=== PATIENT | male | born 1930 | race Caucasian/White ===

== ENCOUNTER 2016-10-07 16:12 | Emergency (ER) | payer BC, OTHER ==
[2016-10-07 16:19] VITALS: BP 170/92; PULSE 83; TEMP 98; BMI 28.0
--- NOTE | 2016-10-07 19:05 | PDOC ---
History of Present Illness <Ted Birmingham - Last Filed: 10/07/16 19:50> - General History Source: Patient Exam Limitations: No Limitations - History of Present Illness Initial Comments: 10/07/16 20:15 The patient is a 86 year old male, with a significant past medical history of renal failure and hypertension, who presents to the emergency department complaining of shortness of breath for two days and intermittent palpitations. Patient is not presently experiencing any symptoms. Patient started experiencing shortness of breath and associated symptoms of nonproductive cough while at dialysis. Patient has a history of shortness of breath while walking for long periods and has to stop to catch his breath. Patient also admits to trouble sleeping and wakes up with shortness of breath. Patient is also experiencing swelling in lower extremities bilaterally. He denies any recent fevers, chills, headache or dizziness. He denies any recent nausea, vomit, diarrhea or constipation. He denies any recent chest pain. He denies any recent dysuria, frequency, urgency or hematuria. Past surgical history: Appendectomy Social History: Former smoker (quit over 45 years ago) Primary Care Physician: Kristopher Dunlap M.D. <Bibiana Guadalupe - Last Filed: 10/07/16 20:17> - General Chief Complaint: Respiratory Stated Complaint: CONGESTION Time Seen by Provider: 10/07/16 18:42 Past History - Past Medical History Anemia: No Asthma: No Cancer: Yes (LEFT FOOT) Cardiac Disorders: No CVA: No COPD: No CHF: No Dementia: No Diabetes: No Dialysis: Yes (-W-) GI Disorders: No Disorders: No HTN: Yes Hypercholesterolemia: Yes Liver Disease: No Suicide Attempt (Hx): No Seizures: No Thyroid Disease: No Other medical history: R SHOULDER BURSITIS - Surgical History Abdominal Surgery: No Appendectomy: Yes Cardiac Surgery: No Cholecystectomy: No Lung Surgery: No Neurologic Surgery: No Orthopedic Surgery: No - Psycho/Social/Smoking Cessation Hx Anxiety: No Suicidal Ideation: No Smoking History: Never smoked Have you smoked in the past 12 months: No If you are a former smoker, when did you quit?: 30 yrs ago Hx Alcohol Use: No Drug/Substance Use Hx: No Substance Use Type: None Hx Substance Use Treatment: No <Ted Birmingham - Last Filed: 10/07/16 19:50> <Bibiana Guadalupe - Last Filed: 10/07/16 20:17> - Past Medical History Allergies/Adverse Reactions: Allergies Allergy/AdvReac Type Severity Reaction Status Date / Time No Known Allergies Allergy Verified 10/07/16 16:19 Home Medications: Ambulatory Orders Aspirin Coated [Ecotrin -] 81 mg PO DAILY #0 02/14/14 Atorvastatin Ca [Lipitor] 20 mg PO HS #0 NS 02/14/14 Carvedilol 3.125 mg PO BID #0 02/14/14 Cholecalciferol (Vitamin D3) [Vitamin D3] 1,000 unit PO DAILY #0 02/14/14 Folic Acid/Vit Bcomp,C [Dialyvite 800 Tablet] 0.8 mg PO DAILY #0 02/14/14 [place]-3 Fatty Acids [Fish Oil] 1,000 mg PO TID #0 02/14/14 Sevelamer HCl [Renagel] 800 mg PO TID #0 02/14/14 Ubidecarenone [Co Q-10] 30 mg PO DAILY #0 02/14/14 Zolpidem Tartrate 10 mg PO DAILY #0 02/14/14 Review of Systems - Review of Systems Able to Perform ROS?: Yes Comments:: 10/07/16 20:01 CONSTITUTIONAL: No fever, no chills, no fatigue EYES: No visual changes ENT: No ear pain, no sore throat CARDIOVASCULAR: +palpitations,No chest pain, RESPIRATORY: +SOB, +cough. GI: No abdominal pain, no nausea, no vomiting, no constipation, no diarrhea GENITOURINARY: No dysuria, no frequency, no hematuria MUSCULOSKELETAL: No back pain, no joint pain, no myalgias SKIN: No rash NEURO: No headache <Bibiana Guadalupe - Last Filed: 10/07/16 20:17> *Physical Exam - Vital Signs Last Vital Signs Temp Pulse Resp BP Pulse Ox 98.0 F 83 20 170/92 99 10/07/16 16:14 10/07/16 16:14 10/07/16 16:14 10/07/16 16:14 10/07/16 16:14 <Ted Birmingham - Last Filed: 10/07/16 19:50> - Vital Signs Last Vital Signs Temp Pulse Resp BP Pulse Ox 98.0 F 83 20 170/92 99 08/30/17 16:14 10/07/16 16:14 10/07/16 16:14 10/07/16 16:14 10/07/16 16:14 - Physical Exam Comments: 10/07/16 20:01 CONSTITUTIONAL: Well-appearing; well-nourished; in no apparent distress HEAD: Normocephalic; atraumatic EYES: PERRL; EOM intact ENMT: External appears normal; normal oropharynx NECK: Supple; non-tender; no cervical lymphadenopathy CARD: Normal S1, S2; no murmurs, rubs, or gallops RESP: Normal chest excursion with respiration; breath sounds clear and equal bilaterally; no wheezes, rhonchi, or rales ABD: Soft, non-distended; non-tender; no palpable organomegaly, no palpable hernias EXT: AV fistula with a palpable thrill. +2 pitting edema of lower extremities bilaterally.Normal ROM in all four extremities; non-tender to palpation; distal pulses intact SKIN: Warm, dry, no rash NEURO: No focal neurological deficiencies. <Bibiana Guadalupe - Last Filed: 10/07/16 20:17> ED Treatment Course - RADIOLOGY Radiology Studies Ordered: Category Date Time Status CHEST PA & LAT [RAD] Stat Radiology 10/07/16 18:43 Ordered <Ted Birmingham - Last Filed: 10/07/16 19:50> Medical Decision Making - Medical Decision Making 10/07/16 19:51 patient is a well-appearing 86-y/omale with hx/o of ESRD on HD, HTN, hypercholesterolemia presents to the ED after several episodes of dry nonproductive cough while at HD. atient denies chest pain/nausea/vomiting/fever /chills. In the ER, patient is awake and alert well-appearing, asymptomatic, afebrile and mildly hypertensive. Oxygen saturation is noted to be 98% room air. Lungs are noted to be clear. Chest x-ray reveals minimal atelectasis the left lower lobe and borderline cardiomegaly. EKG reveals normal sinus at 76 with left axis deviation and right bundle branch block with LVH which appears unchanged from previous. I do not believe there are any acute issues are present at this time. Will discharge with PMD follow-up. <Ted Birmingham - Last Filed: 10/07/16 19:50> *DC/Admit/Observation/Transfer - Attestations Physician Attestion: 10/07/16 19:50 The documentation was prepared by the scribe under my direct supervision. I have reviewed the documentation which correctly represents the findings, medical decision-making and critical action taken by me. <Ted Birmingham - Last Filed: 10/07/16 19:50> - Attestations Scribe Attestion: 10/07/16 20:16 Documentation prepared by Bibiana Guadalupe, acting as medical instructor for Ted Birmingham MD. <Bibiana Guadalupe - Last Filed: 10/07/16 20:17> Diagnosis at time of Disposition: Shortness of breath, Cough - Discharge Dispostion Disposition: HOME Condition at time of disposition: Stable - Referrals Referrals: Kristopher Dunlap MD [Primary Care Provider] - - Patient Instructions Printed Discharge Instructions: DI for Cough -- Adult, DI for Shortness of Breath
--- NOTE | 2016-10-08 11:11 | EKG ---
Test Reason : Blood Pressure : / mmHG Vent. Rate : 076 BPM Atrial Rate : 076 BPM P-R Int : 138 ms QRS Dur : 136 ms QT Int : 424 ms P-R-T Axes : 061 -34 -08 degrees QTc Int : 477 ms SINUS RHYTHM WITH PREMATURE ATRIAL COMPLEXES WITH ABERRANT CONDUCTION LEFT AXIS DEVIATION RIGHT BUNDLE BRANCH BLOCK MINIMAL VOLTAGE CRITERIA FOR LVH, MAY BE NORMAL VARIANT ABNORMAL ECG WHEN COMPARED WITH ECG OF 21-FEB-2014 19:02, ABERRANT CONDUCTION IS NOW PRESENT Confirmed by SHEILA ESPARZA MD ([id number]) on 10/08/2016 11:10:56 AM Referred By: Confirmed By:SHEILA ESPARZA MD
== END 2016-10-07 20:01 | disposition home or self-care (01) ==
LOC: JER 16:12
DX: R05 Cough (principal); I12.0 Hypertensive chronic kidney disease with stage 5 chronic kidney disease or end stage renal disease; N18.6 End stage renal disease; N17.8 Other acute kidney failure; Z99.2 Dependence on renal dialysis; E78.00 Pure hypercholesterolemia, unspecified
CPT/HCPCS: 71020-TC; 93005; 93010; 99282-25

== ENCOUNTER 2016-11-26 11:54 | Inpatient (IN) | payer BC ==
--- NOTE | 2016-11-26 13:52 | PDOC ---
*Physical Exam - Vital Signs Last Vital Signs Temp Pulse Resp BP Pulse Ox 98.6 F 85 19 149/75 98 11/26/16 12:21 11/26/16 12:21 11/26/16 12:21 11/26/16 12:21 11/26/16 12:21 ED Treatment Course - LABORATORY CBC & Chemistry Diagram: 11/26/16 14:10 11/26/16 14:10 Medical Decision Making - Medical Decision Making 11/26/16 19:08 Agree with history physical assessment and plan *DC/Admit/Observation/Transfer Diagnosis at time of Disposition: Cellulitis, ESRD (end stage renal disease) on dialysis
[2016-11-26 14:29] LABS: BASOPHIL 0.4 % (0-2.0); EOSINOPHIL 0.6 % (0-4.5); MCH 33.3 pg (25.7-33.7); MCHC 32.8 g/dl (32.0-35.9); MEAN CELL VOLUME 101.5 fl (80-96); MEAN PLT VOLUME 7.7 fl (7.5-11.1); PLATELET COUNT 134 K/MM3 (134-434)
--- NOTE | 2016-11-26 14:32 | PDOC ---
History of Present Illness - General Chief Complaint: Altered Mental Status Stated Complaint: AMS/WOUND INFECTION Time Seen by Provider: 11/26/16 12:38 History Source: Patient, Family Exam Limitations: No Limitations - History of Present Illness Initial Comments: 11/26/16 13:33 86-year-old male brought in by family for complaints of feeling feverish along with generalized weakness and intermittent confusion since yesterday. As per and son patient had dialysis yesterday which went uneventful and after dialysis patient was found to have these symptoms which family thought after eating and resting through the night they were resolved but states symptoms continue and decided bring patient to the ER. Patient recent left foot infection treated with antibiotics 3 weeks which he just completed. Family denies drainage, redness or swelling on the site but states his left foot and left leg feel warm and appears swollen compared to the right. Patient is and urine and has no other complaints including headache, chest pain, shortness breath, cough, GI complaints, or change in appetite. Timing/Duration: 24 hours Severity: mild Associated Symptoms: reports: weakness, other (confusion) Past History - Travel Traveled outside of the country in the last 30 days: No Close contact w/someone who was outside of country & ill: No - Past Medical History Allergies/Adverse Reactions: Allergies Allergy/AdvReac Type Severity Reaction Status Date / Time No Known Allergies Allergy Verified 11/26/16 12:20 Home Medications: Ambulatory Orders Aspirin Coated [Ecotrin -] 81 mg PO DAILY #0 02/14/14 Atorvastatin Ca [Lipitor] 20 mg PO HS #0 NS 02/14/14 Carvedilol 3.125 mg PO BID #0 02/14/14 Cholecalciferol (Vitamin D3) [Vitamin D3] 1,000 unit PO DAILY #0 02/14/14 Folic Acid/Vit Bcomp,C [Dialyvite 800 Tablet] 0.8 mg PO DAILY #0 02/14/14 [place]-3 Fatty Acids [Fish Oil] 1,000 mg PO TID #0 02/14/14 Sevelamer HCl [Renagel] 800 mg PO TID #0 02/14/14 Ubidecarenone [Co Q-10] 30 mg PO DAILY #0 02/14/14 Zolpidem Tartrate 10 mg PO DAILY #0 02/14/14 Anemia: No Asthma: No Cancer: Yes (LEFT FOOT) Cardiac Disorders: No CVA: No COPD: No CHF: No Dementia: No Diabetes: No Dialysis: Yes (M-W-) GI Disorders: No Disorders: No HTN: Yes Hypercholesterolemia: Yes Liver Disease: No Seizures: No Thyroid Disease: No - Surgical History Abdominal Surgery: No Appendectomy: Yes Cardiac Surgery: No Cholecystectomy: No Lung Surgery: No Neurologic Surgery: No Orthopedic Surgery: No - Suicide/Smoking/Psychosocial Hx Smoking History: Former smoker Have you smoked in the past 12 months: No If you are a former smoker, when did you quit?: 30 yrs ago Information on smoking cessation initiated: No Hx Alcohol Use: No Drug/Substance Use Hx: No Substance Use Type: None Hx Substance Use Treatment: No Patient Lives Alone: No Lives with/in: spouse/SO Review of Systems - Review of Systems Able to Perform ROS?: No Is the patient limited Mohawk proficient: No Constitutional: Yes: Weakness HEENTM: No: Symptoms Reported Respiratory: No: Symptoms reported Cardiac (ROS): No: Symptoms Reported ABD/GI: No: Symptoms Reported : No: Symptoms Reported Integumentary: Yes: Other (wounds to left foot) Neurological: Yes: Weakness. No: Headache, Dizziness Hematologic/Lymphatic: No: Symptoms Reported *Physical Exam - Vital Signs Last Vital Signs Temp Pulse Resp BP Pulse Ox 98.6 F 85 19 149/75 98 11/26/16 12:21 11/26/16 12:21 11/26/16 12:21 11/26/16 12:21 11/26/16 12:21 - Physical Exam General Appearance: Yes: Nourished, Appropriately Dressed. No: Apparent Distress HEENT: negative: Pale Conjunctivae Neck: positive: Supple Respiratory/Chest: positive: Lungs Clear, Normal Breath Sounds. negative: Respiratory Distress, Accessory Muscle Use Cardiovascular: positive: Regular Rhythm, Regular Rate. negative: Murmur Gastrointestinal/Abdominal: positive: Soft. negative: Tenderness Musculoskeletal: negative: Normal Inspection Extremity: positive: Normal Capillary Refill. negative: Normal Inspection (1-2 + nonpitting edema to left foot and ankle. noted increased warmth when compared bilateral with mild erythema to anterior left distal tib/fib region) Integumentary: positive: Other (noted fissure / open callus to left heel measuring 2cm x 0.5 cm in depth. 1 cm x 0.25cm wound to the sole at the base of left 1st toe ) Neurologic: positive: Alert, Normal Mood/Affect, Motor Strength 5/5. negative: Fully Oriented (not to time) ED Treatment Course - LABORATORY CBC & Chemistry Diagram: 11/26/16 14:10 11/26/16 14:10 - RADIOLOGY Radiology Studies Ordered: Category Date Time Status CHEST X-RAY PORTABLE* [RAD] Stat Radiology 11/26/16 13:42 Ordered DUPLEX VASCUL US-1 LEG [US] Stat Ultrasound 11/26/16 13:41 Ordered Medical Decision Making - Medical Decision Making 11/26/16 14:02 Evaluation of possible infection of the left foot. Patient yesterday appeared weak ,mildly confused, and redness with swelling to the left lower leg to completing dialysis. Patient has no complaints except for mild weakness patient found to be alert place and person. Patient on exam also with clinical indication of early cellulitis. Patient ordered for septic workup including ultrasound of the left lower extremity and culture collected from both the heel and left sole wound 11/26/16 14:54 Laboratory Tests 11/26/16 14:10 WBC 4.0 D Hgb 11.2 L Hct 34.3 L Plt Count 134 D Monocytes % 14.8 H 11/26/16 14:59 Laboratory Tests 11/26/16 14:10 Sodium 136 Potassium 4.4 Chloride 100 Carbon Dioxide 30 Anion Gap 6 L BUN 48 H Creatinine 7.7 H* D Creat Clearance w eGFR 6.74 Random Glucose 90 D Calcium 8.6 Total Bilirubin 0.6 D AST 11 L ALT 14 D Alkaline Phosphatase 72 D Total Protein 7.0 Albumin 3.0 L 11/26/16 16:18 Laboratory Tests 11/26/16 11/26/16 11/26/16 14:00 14:10 14:10 WBC 4.0 D Hgb 11.2 L Hct 34.3 L MCV 101.5 H Neutrophils % 62.0 Monocytes % 14.8 H Sodium 136 Potassium 4.4 Chloride 100 Carbon Dioxide 30 Anion Gap 6 L BUN 48 H Creatinine 7.7 H* D Random Glucose 90 D Lactic Acid 0.8 AST 11 L ALT 14 D Alkaline Phosphatase 72 D Total Protein 7.0 Albumin 3.0 L 11/26/16 16:50 Since patient just recently completed antibiotics for a left foot wound patient will be admitted for failed outpatient antibiotic therapy. Patient to for hemodialysis tomorrow. Patient ordered for 1 g of vancomycin here in the ER. Case discussed with Dr. Muniz and states the place admission under Dr. Jara. As also placed with Dr. Merary Gallegos's patient's accounting manager controller to schedule him for dialysis tomorrow. Chest ray chest x-ray negative for acute findings . DVT study negative *DC/Admit/Observation/Transfer Diagnosis at time of Disposition: ESRD (end stage renal disease) on dialysis Cellulitis Qualifiers: Site of cellulitis: extremity Site of cellulitis of extremity: lower extremity Laterality: left Qualified Code(s): L03.116 - Cellulitis of left lower limb - Discharge Dispostion Admit: Yes
[2016-11-26] MEDS ORDERED: ACETAMINOPHEN 325 MG TABLET (FP) PO ONE (14:48)
[2016-11-26 14:50] LABS: ANION GAP 6 (8-16); BILIRUBIN,TOTAL 0.6 mg/dL (0.2-1.0); CALCIUM 8.6 mg/dL (8.5-10.1); CO2 30 mmol/L (21-32); GLUCOSE,RANDOM 90 mg/dL (74-106); SGOT/AST 11 U/L (15-37); SGPT/ALT 14 U/L (12-78)
--- NOTE | 2016-11-26 14:55 | EKG ---
Test Reason : Blood Pressure : / mmHG Vent. Rate : 078 BPM Atrial Rate : 078 BPM P-R Int : 152 ms QRS Dur : 130 ms QT Int : 410 ms P-R-T Axes : 055 -41 -17 degrees QTc Int : 467 ms NORMAL SINUS RHYTHM POSSIBLE LEFT ATRIAL ENLARGEMENT LEFT AXIS DEVIATION RIGHT BUNDLE BRANCH BLOCK LEFT VENTRICULAR HYPERTROPHY ABNORMAL ECG WHEN COMPARED WITH ECG OF 07-OCT-2016 19:26, ABERRANT CONDUCTION IS NO LONGER PRESENT Confirmed by SHEILA ESPARZA MD ([id number]) on 11/26/2016 2:55:02 PM Referred By: Confirmed By:SHEILA ESPARZA MD
[2016-11-26 14:56] LABS: ALK PHOS 72 U/L (45-117)
[2016-11-26 14:58] LABS: CREATININE 7.7 mg/dL (0.7-1.3)
[2016-11-26] MEDS ORDERED: ACETAMINOPHEN 325 MG TABLET (FP) ONE (15:15)
[2016-11-26] MEDS ORDERED: VANCOMYCIN 1,000 MG in DEXTROSE 5%-WATER - 250 ML IVPB ONE (16:43)
[2016-11-26] MEDS ORDERED: ACETAMINOPHEN 325 MG TABLET (FP) PO PRN (16:59)
[2016-11-26] MEDS: SEVELAMER CARBONATE 800 MG TAB (FP) PO SCH (18:05)
[2016-11-26] MEDS ORDERED: PIPERACILLIN/TAZOB 2.25 GM/50 ML PREMIX BAG IVPB SCH (22:00)
[2016-11-26] MEDS ORDERED: PIPERACILLIN/TAZOB 2.25 GM 50 ML IVPB ONE (22:00)
[2016-11-26] MEDS: ZOLPIDEM TARTRATE 5 MG TABLET PO SCH (22:11)
[2016-11-26] MEDS: HEPARIN NA (PORCINE) 5,000 UNITS/ML 1ML VIAL SQ SCH (22:11)
[2016-11-26] MEDS: CARVEDILOL 3.125 MG TABLET (FP) PO SCH (22:11)
[2016-11-26] MEDS: ATORVASTATIN CA 20 MG TABLET (FP) PO SCH (22:11)
[2016-11-27 02:29] VITALS: BMI 28.0
[2016-11-27 08:40] LABS: BASOPHIL 0.4 % (0-2.0); EOSINOPHIL 1.5 % (0-4.5); MCH 33.2 pg (25.7-33.7); MCHC 32.8 g/dl (32.0-35.9); MEAN CELL VOLUME 101.2 fl (80-96); MEAN PLT VOLUME 8.3 fl (7.5-11.1); NEUTROPHILS 62.4 % (42.8-82.8); PLATELET COUNT 139 K/MM3 (134-434); RDW 14.8 % (11.9-15.9)
[2016-11-27 08:51] LABS: ANION GAP 12 (8-16); BILIRUBIN,TOTAL 0.7 mg/dL (0.2-1.0); CALCIUM 8.4 mg/dL (8.5-10.1); CO2 25 mmol/L (21-32); GLUCOSE,RANDOM 81 mg/dL (74-106); SGOT/AST 15 U/L (15-37); SGPT/ALT 15 U/L (12-78); TOT PROT 7.1 g/dl (6.4-8.2)
[2016-11-27 08:57] LABS: ALK PHOS 71 U/L (45-117)
[2016-11-27] MEDS: SEVELAMER CARBONATE 800 MG TAB (FP) PO SCH ×3 (09:11→18:03)
[2016-11-27 09:26] LABS: CREATININE 8.9 mg/dL (0.7-1.3)
[2016-11-27] MEDS ORDERED: PT OWN MED DRAWER 7, Y5N ONE (10:02)
[2016-11-27] MEDS: CHOLECALCIFEROL (VITAMIN D3) 1,000 UNIT TABLET (FP) PO SCH (10:06)
[2016-11-27] MEDS: ASPIRIN COATED 81 MG TABLET.EC PO SCH (10:06)
[2016-11-27] MEDS: HEPARIN NA (PORCINE) 5,000 UNITS/ML 1ML VIAL SQ SCH ×2 (10:06→21:03)
[2016-11-27] MEDS: CARVEDILOL 3.125 MG TABLET (FP) PO SCH ×2 (10:06→21:03)
--- NOTE | 2016-11-27 10:09 | PN ---
Progress Note (short form) - Note Progress Note: ID consult dictated imp/reccd admitted with possible fever at home and confusion-cannot r/o occult bacteremia in a HD patient no fevers in hospital no cellulitis noted has several dry callouses on his feet appears volume overloaded- on HD L AVF no erythema foot ulcers are dry no erythema or drainage got vancomycin and zosyn in ed would continue vancomycin per level until blood cultures are back f/u cultures Problem List - Problems (1) Cellulitis Code(s): L03.90 - CELLULITIS, UNSPECIFIED Qualifiers: Site of cellulitis: extremity Site of cellulitis of extremity: lower extremity Laterality: left Qualified Code(s): L03.116 - Cellulitis of left lower limb; L03.116 - Cellulitis of left lower limb (2) ESRD (end stage renal disease) on dialysis Code(s): N18.6 - END STAGE RENAL DISEASE Z99.2 - DEPENDENCE ON RENAL DIALYSIS
--- NOTE | 2016-11-27 10:58 | HP ---
Admitting History and Physical - Primary Care Physician PCP: Kristopher Dunlap - Admission Chief Complaint: I'm dizzy History of Present Illness: Mr Moran is a very pleasant 86 year old male who comes in with difficulty walking and confusion. He is somewhat confused on exam so cannot give an accurate history but can give review of systems. Per his family he was doing well on Wednesday, and then Wednesday began to have difficulty walking. It was noted that he was complaining of more pain with walking. After HD on Wednesday he was very dizzy with walking,however this is not unusual. Yesterday he became very weak and also confused and was brought in for further evaluation. He says he is feeling fine today. He denies fevers, chills, lightheadedness today, chest pain , shortness of breath, nausea, vomiting, abdominal pain, diarrhea, difficulty or pain on urination. He endorses leg swelling and leg pain. History Source: Patient Limitations to Obtaining History: No Limitations - Past Medical History Cardiovascular: Yes: HTN, Hyperlipdemia Renal/: Yes: Renal Failure, BPH, Hemodialysis Heme/Onc: Yes: Anemia - Past Surgical History Past Surgical History: Yes: AV Fistula/Graft - Smoking History Smoking history: Former smoker Have you smoked in the past 12 months: No If you are a former smoker, when did you quit?: 30 yrs ago - Alcohol/Substance Use Hx Alcohol Use: No History of Substance Use: reports: None - Social History Usual Living Arrangement: Yes: With Spouse ADL: Independent History of Recent Travel: No Home Medications - Allergies Allergies/Adverse Reactions: Allergies Allergy/AdvReac Type Severity Reaction Status Date / Time No Known Allergies Allergy Verified 11/26/16 12:20 - Home Medications Home Medications: Ambulatory Orders Aspirin Coated [Ecotrin -] 81 mg PO DAILY #0 02/14/14 Atorvastatin Ca [Lipitor] 20 mg PO HS #0 NS 02/14/14 Carvedilol 3.125 mg PO BID #0 02/14/14 Cholecalciferol (Vitamin D3) [Vitamin D3] 1,000 unit PO DAILY #0 02/14/14 Folic Acid/Vit Bcomp,C [Dialyvite 800 Tablet] 0.8 mg PO DAILY #0 02/14/14 [place]-3 Fatty Acids [Fish Oil] 1,000 mg PO TID #0 02/14/14 Sevelamer HCl [Renagel] 800 mg PO TID #0 02/14/14 Ubidecarenone [Co Q-10] 30 mg PO DAILY #0 02/14/14 Zolpidem Tartrate 10 mg PO DAILY #0 02/14/14 Family Disease History - Family Disease History Family Disease History: Heart Disease: Brother, Sister Review of Systems Findings/Remarks: Full review of systems obtained, as per HPI and otherwise negative Physical Examination Vital Signs: Vital Signs Temperature 36.7 C 11/27/16 06:00 Pulse Rate 74 11/27/16 06:00 Respiratory Rate 20 11/27/16 06:00 Blood Pressure 160/84 11/27/16 06:00 O2 Sat by Pulse Oximetry (%) 95 11/26/16 21:40 Constitutional: Yes: Well Nourished, No Distress, Calm Eyes: Yes: Conjunctiva Clear, EOM Intact, PERRL HENT: Yes: Atraumatic, Normocephalic Cardiovascular: Yes: Regular Rate and Rhythm. No: Gallop, Murmur, Rub Respiratory: Yes: Regular, CTA Bilaterally. No: Rales, Rhonchi, Wheezes Gastrointestinal: Yes: Normal Bowel Sounds, Soft. No: Distention, Tenderness Extremities: Yes: WNL Edema: Yes Edema: LLE: 1+, RLE: 1+ Labs: CBC, BMP 11/27/16 06:00 11/27/16 06:00 Imaging - Results Chest X-ray: Report Reviewed, Image Reviewed Problem List - Problems (1) Cellulitis Assessment/Plan: -patient presents with cellulitis, failed outpatient therapy -with callous, concern for osteomyelitis -admit to hospital -ID following and placed on vancomycin -follow up cultures -follow up x-ray Code(s): L03.90 - CELLULITIS, UNSPECIFIED Qualifiers: Site of cellulitis: extremity Site of cellulitis of extremity: lower extremity Laterality: left Qualified Code(s): L03.116 - Cellulitis of left lower limb; L03.116 - Cellulitis of left lower limb (2) ESRD (end stage renal disease) on dialysis Assessment/Plan: -nephrology following -HD per nephrology Code(s): N18.6 - END STAGE RENAL DISEASE Z99.2 - DEPENDENCE ON RENAL DIALYSIS (3) BPH (benign prostatic hyperplasia) Assessment/Plan: -monitor Code(s): N40.0 - BENIGN PROSTATIC HYPERPLASIA WITHOUT LOWER URINRY TRACT SYMP (4) HLD (hyperlipidemia) Assessment/Plan: -continue lipitor Code(s): E78.5 - HYPERLIPIDEMIA, UNSPECIFIED (5) Hypertension Assessment/Plan: -continue coreg -may improve with HD Code(s): I10 - ESSENTIAL (PRIMARY) HYPERTENSION (6) Ulcer Assessment/Plan: -chronic heel ulcer -monitor Code(s): L98.499 - NON-PRESSURE CHRONIC ULCER OF SKIN OF SITES W UNSP SEVERITY
[2016-11-27] MEDS: VITAMIN B COMP W-C 1 EA TABLET PO SCH (11:58)
--- NOTE | 2016-11-27 12:10 | CONS ---
DATE OF CONSULTATION: 11/27/2016 REQUESTING PHYSICIAN: Sharad Muniz MD HISTORY OF PRESENT ILLNESS: This is an 86-year-old man, who has been on dialysis for at least the last 8 years via left AV fistula, whose family brought him to the ER yesterday with complaints of generalized weakness, feeling feverish, and some intermittent confusion. He had had dialysis yesterday, and after that, had these symptoms at home. They thought they would resolve, but they did not, they persisted, and they brought him to the emergency room. He has recently been on a 3-week course of an antibiotic, it is unclear what for, which he says he took twice a day for a cellulitis of his left foot. He otherwise feels well. He notes he has had chronic shortness of breath, which he states has been intermittent for the last several months. As well, he complains of sore throat which he has had for at least 8 months. The family noted in the emergency room that his left foot was warm and swollen compared to the right. He had a duplex done that was negative of his foot. There was no history of any trauma. He was afebrile in the emergency room. He had the duplex done. He was given vancomycin and Zosyn and admitted for further care. I was asked to see him for further antibiotic recommendations. He is currently awake and alert and reports feeling well other than this chronic sore throat and chronic shortness of breath. He has no dysuria. In fact, he reports he is anuric and does not urinate. ALLERGIES: He has no known drug allergies. MEDICATIONS: At home include Ecotrin, Lipitor, Coreg, vitamin D, fish oil, Renagel, coenzyme Q, Ambien, and Dialyvite. 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 He has been on dialysis. He is unclear why he is on dialysis. He has a history of hypertension. He denies diabetes. He has never had a heart attack. PAST SURGICAL HISTORY: Is notable for AV graft and appendectomy. SOCIAL HISTORY: He is . He lives with his . He is retired. He is a former smoker. He stopped smoking many years ago. REVIEW OF SYSTEMS: He denies headache. He has had a good appetite. He denies nausea, vomiting, diarrhea, or dysuria. PHYSICAL EXAMINATION General: He is awake and alert. Vital signs: Temperature is 98, pulse is 74, blood pressure 160/84, respiratory rate 20, weight is 190 pounds. HEENT: H is normocephalic. His eyes are anicteric. Neck: Supple. He has no thrush. He has no pharyngitis. He has no meningeal signs. Lungs: Have bibasilar crackles. He has scattered rhonchi throughout. Heart: Regular rate and rhythm. Abdomen: Soft, nontender. Extremities: Notable for 2+ dorsalis pedis pulses bilaterally. He has a dry plantar heel ulcer on the sole of his right heel. On his left foot, he has a small ulcer at the base of his left toe, which is dry. There is no associated cellulitis with either of these lesions. LABORATORIES: Notable for a white count of 4, hemoglobin 11.9, platelets are 139. INR is 1. BUN 59, creatinine 8.9. Cultures are pending. Chest x-ray was done and is consistent with congestion. Duplex studies were negative. SUMMARY: This is an 86-year-old man admitted with possible fever at home and confusion. This appears to be resolved. Cannot rule out occult bacteremia in a hemodialysis patient. I would suggest we continue the vancomycin based on levels until blood cultures are back. I would suggest we stop the Zosyn and that he be seen by Renal regarding his volume overload and need for further dialysis. Further recommendations to follow based on his clinical course. MCKAYLA PIERCE M.D. [id number]
--- NOTE | 2016-11-27 12:12 | CON.NEP ---
Consult Consult Specialty:: Nephrology Referred by:: Dr. 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 Pt completed dialysis on Wednesday but was very weak, refused to go to the ER at that time. At home he was confused at home and remained so the the next day. Denies any fever, chills , N/V/D. No chest pain, abd pian. No flank pain. Does not make urine. No Rash. Reports that his left leg was swollen and red on presentation. Has a chronic wound on his left foot for which he recieved a 3 week course of Abx. - History Source History Provided By: Patient, Family Member Limitations to Obtaining History: No Limitations - Past Medical History Cardio/Vascular: Yes: HTN, Hyperlipdemia Renal/: Yes: Renal Failure, BPH, Hemodialysis - Past Surgical History Past Surgical History: Yes: AV Fistula/Graft - Alcohol/Substance Use Hx Alcohol Use: No History of Substance Use: reports: None - Smoking History Smoking history: Former smoker Have you smoked in the past 12 months: No If you are a former smoker, when did you quit?: 30 yrs ago - Social History ADL: Independent History of Recent Travel: No Home Medications - Allergies Allergies/Adverse Reactions: Allergies Allergy/AdvReac Type Severity Reaction Status Date / Time No Known Allergies Allergy Verified 11/26/16 12:20 - Home Medications Home Medications: Ambulatory Orders Aspirin Coated [Ecotrin -] 81 mg PO DAILY #0 02/14/14 Atorvastatin Ca [Lipitor] 20 mg PO HS #0 NS 02/14/14 Carvedilol 3.125 mg PO BID #0 02/14/14 Cholecalciferol (Vitamin D3) [Vitamin D3] 1,000 unit PO DAILY #0 02/14/14 Folic Acid/Vit Bcomp,C [Dialyvite 800 Tablet] 0.8 mg PO DAILY #0 02/14/14 [place]-3 Fatty Acids [Fish Oil] 1,000 mg PO TID #0 02/14/14 Sevelamer HCl [Renagel] 800 mg PO TID #0 02/14/14 Ubidecarenone [Co Q-10] 30 mg PO DAILY #0 02/14/14 Zolpidem Tartrate 10 mg PO DAILY #0 02/14/14 Family Disease History - Family Disease History Family Disease History: Heart Disease: Brother, Sister Review of Systems - Review of Systems Constitutional: reports: No Symptoms Eyes: reports: No Symptoms HENT: reports: No Symptoms Neck: reports: No Symptoms Cardiovascular: reports: No Symptoms Respiratory: reports: No Symptoms Gastrointestinal: reports: No Symptoms Genitourinary: reports: No Symptoms Musculoskeletal: reports: No Symptoms Integumentary: reports: No Symptoms Neurological: reports: No Symptoms Endocrine: reports: No Symptoms Nephrology Consult - Height Height: 5 ft 9 in - Weight Weight: 190 lb - BMI Body Mass Index (BMI): 28.0 - Lab Results CBC,BMP: CBC, BMP 11/27/16 06:00 11/27/16 06:00 Anion Gap: Anion Gap Anion Gap 12 (8-16) 11/27/16 06:00 - Imaging Chest X-ray: Report Reviewed - Physical Examination Vital Signs: Vital Signs Temperature 98.0 F 11/27/16 06:00 Pulse Rate 74 11/27/16 06:00 Respiratory Rate 20 11/27/16 06:00 Blood Pressure 160/84 11/27/16 06:00 O2 Sat by Pulse Oximetry (%) 95 11/26/16 21:40 Constitutional: Yes: No Distress, Calm Eyes: Yes: Conjunctiva Clear HENT: Yes: Atraumatic, Normocephalic Neck: Yes: Supple Cardiovascular: Yes: Regular Rate and Rhythm Respiratory: Yes: Regular, Rales Gastrointestinal: Yes: Normal Bowel Sounds, Soft, Abdomen, Obese Renal/: No: Bladder Distention Edema: No Peripheral Pulses WNL: Yes Wound/Incision: Yes: Clean/Dry Neurological: Yes: Alert, Oriented Problem List - Problems (1) Cellulitis Code(s): L03.90 - CELLULITIS, UNSPECIFIED Qualifiers: Site of cellulitis: extremity Site of cellulitis of extremity: lower extremity Laterality: left Qualified Code(s): L03.116 - Cellulitis of left lower limb; L03.116 - Cellulitis of left lower limb (2) ESRD (end stage renal disease) on dialysis Code(s): N18.6 - END STAGE RENAL DISEASE Z99.2 - DEPENDENCE ON RENAL DIALYSIS (3) Altered mental status Code(s): R41.82 - ALTERED MENTAL STATUS, UNSPECIFIED Assessment/Plan 86 year old gentleman with PMHx of 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 #AMS in setting of LE Cellulitis/Chronic foot wound Mental status now improved to baseline as per family s/p IV Abx yesterday no CT head performed to continue Abx as per ID consider podiatry/vascular eval of chronic foot wound will check vanco level and redose vanco with HD today #ESRD on HD for dialysis today planed 3.5 hour treatment Renal diet, 1.2L fluid restriction Dose all meds for intermittent HD #CKD related Aemia Hgb is > 10 holding CLYDE at this time #Renal Osteodystrophy continue renvela TID with meals trend phos levels Thank you Will follow Sudheer Wade DO Current Medications Acetaminophen (Tylenol -) 650 mg PO Q4H PRN PRN Reason: FEVER OR PAIN Aspirin (Ecotrin -) 81 mg PO DAILY [facility] Last Admin: 11/27/16 10:06 Dose: 81 mg Atorvastatin Calcium (Lipitor -) 20 mg PO HS [facility] Last Admin: 11/26/16 22:11 Dose: 20 mg Carvedilol (Coreg -) 3.125 mg PO BID [facility] Last Admin: 11/27/16 10:06 Dose: 3.125 mg Cholecalciferol (Vitamin D3 -) 1,000 unit PO DAILY [facility] Last Admin: 11/27/16 10:06 Dose: 1,000 unit Heparin Sodium (Porcine) (Heparin -) 5,000 unit SQ BID [facility] Last Admin: 11/27/16 10:06 Dose: 5,000 unit Vancomycin HCl 1,000 mg/ (Dextrose) 250 mls @ 250 mls/hr IVPB ONCE ONE PRN Reason: Protocol Stop: 11/27/16 13:03 Multivit/Ca Carb/B Cmplx/FA/Prenat (Nephro-Geni -) 1 tablet PO DAILY [facility] Last Admin: 11/27/16 11:58 Dose: 1 tablet Non-Formulary Medication ([place]-3 Fatty Acids [Fish Oil]) 1,000 mg PO TID [facility] Non-Formulary Medication (Ubidecarenone [Co Q-10]) 30 mg PO DAILY [facility] Sevelamer Carbonate (Renvela -) 800 mg PO TIDCM [facility] Last Admin: 11/27/16 09:11 Dose: 800 mg Zolpidem Tartrate (Ambien -) 5 mg PO HS [facility] Last Admin: 11/26/16 22:11 Dose: 5 mg
[2016-11-27] MEDS ORDERED: HEPARIN NA (PORCINE) 5,000 UNITS/ML 1ML VIAL IVPUSH ONE (13:00)
[2016-11-27] MEDS ORDERED: VANCOMYCIN 1,000 MG in DEXTROSE 5%-WATER - 250 ML IVPB ONE (14:00)
[2016-11-27] MEDS: ATORVASTATIN CA 20 MG TABLET (FP) PO SCH (21:03)
[2016-11-27] MEDS: ZOLPIDEM TARTRATE 5 MG TABLET PO SCH (21:04)
--- NOTE | 2016-11-28 08:19 | PN ---
Progress Note, Physician History of Present Illness: ID Asymptomatic and afebrile throughout admission No localizing complaints - Current Medication List Current Medications: Active Medications Acetaminophen (Tylenol -) 650 mg PO Q4H PRN PRN Reason: FEVER OR PAIN Aspirin (Ecotrin -) 81 mg PO DAILY [facility] Last Admin: 11/27/16 10:06 Dose: 81 mg Atorvastatin Calcium (Lipitor -) 20 mg PO HS [facility] Last Admin: 11/27/16 21:03 Dose: 20 mg Carvedilol (Coreg -) 3.125 mg PO BID [facility] Last Admin: 11/27/16 21:03 Dose: 3.125 mg Cholecalciferol (Vitamin D3 -) 1,000 unit PO DAILY [facility] Last Admin: 11/27/16 10:06 Dose: 1,000 unit Heparin Sodium (Porcine) (Heparin -) 5,000 unit SQ BID [facility] Last Admin: 11/27/16 21:03 Dose: 5,000 unit Multivit/Ca Carb/B Cmplx/FA/Prenat (Nephro-Geni -) 1 tablet PO DAILY [facility] Last Admin: 11/27/16 11:58 Dose: 1 tablet Non-Formulary Medication ([place]-3 Fatty Acids [Fish Oil]) 1,000 mg PO TID [facility] Non-Formulary Medication (Ubidecarenone [Co Q-10]) 30 mg PO DAILY [facility] Sevelamer Carbonate (Renvela -) 800 mg PO TIDCM [facility] Last Admin: 11/27/16 18:03 Dose: 800 mg Zolpidem Tartrate (Ambien -) 5 mg PO HS [facility] Last Admin: 11/27/16 21:04 Dose: 5 mg - Objective Vital Signs: Vital Signs Temperature 97.9 F 11/28/16 06:00 Pulse Rate 76 11/28/16 06:00 Respiratory Rate 20 11/28/16 06:00 Blood Pressure 184/92 11/28/16 06:00 O2 Sat by Pulse Oximetry (%) 95 11/27/16 21:00 Constitutional: Yes: Well Nourished, No Distress Neck: Yes: WNL, Supple Cardiovascular: Yes: Regular Rate and Rhythm, S1, S2 Respiratory: Yes: WNL, Regular, CTA Bilaterally. No: Rales, Rhonchi Gastrointestinal: Yes: WNL, Normal Bowel Sounds, Soft. No: Tenderness, Tenderness, Rebound Extremities: Yes: Other (Dry ulcers foot no cellulitis) Edema: No Labs: CBC, BMP 11/27/16 06:00 11/27/16 06:00 Assessment/Plan Microbiology 11/26/16 13:50 Foot - Left Sole Gram Stain - Final 11/26/16 13:50 Foot - Left Heel Gram Stain - Final 11/26/16 14:10 Blood - Peripheral Venous Blood Culture - Preliminary NO GROWTH OBTAINED AFTER 24 HOURS, INCUBATION TO CONTINUE FOR 4 DAYS. 11/26/16 14:10 Blood - Peripheral Venous Blood Culture - Preliminary NO GROWTH OBTAINED AFTER 24 HOURS, INCUBATION TO CONTINUE FOR 4 DAYS. 11/26/16 13:50 Foot - Left Sole Wound Culture - Preliminary Staphylococcus Latex Coag Pos Diphtheroid/Corynebacterium Presumptive Ps Aeruginosa Non Lactose Fermenting Gnb Lactose Fermenting Neg Bacilli Group D Strep Or Entero Coccus 11/26/16 13:50 Foot - Left Heel Wound Culture - Preliminary Lactose Fermenting Neg Bacilli Staphylococcus Latex Coag Pos Group D Strep Or Entero Coccus Laboratory Tests 11/27/16 11/28/16 06:00 06:00 WBC 4.0 Hgb 11.9 Plt Count 139 Random Vancomycin Pending Assessment ESRD "fever" confusion NO fever here no confusion no bacteremia or cellulitis Plan Stop antibiotics completely Discharge planning Dominga SENIOR
[2016-11-28] MEDS: SEVELAMER CARBONATE 800 MG TAB (FP) PO SCH ×3 (08:53→17:26)
[2016-11-28] MEDS ORDERED: PT OWN MED DRAWER 7, Y5N ONE ×2 (10:37→12:34)
[2016-11-28] MEDS: HEPARIN NA (PORCINE) 5,000 UNITS/ML 1ML VIAL SQ SCH ×2 (10:42→22:16)
[2016-11-28] MEDS: ASPIRIN COATED 81 MG TABLET.EC PO SCH (10:42)
[2016-11-28] MEDS: CHOLECALCIFEROL (VITAMIN D3) 1,000 UNIT TABLET (FP) PO SCH (10:43)
[2016-11-28] MEDS: CARVEDILOL 3.125 MG TABLET (FP) PO SCH ×2 (10:44→22:16)
--- NOTE | 2016-11-28 12:43 | PN ---
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 present with Cellulites - Current Medication List Current Medications: Active Medications Acetaminophen (Tylenol -) 650 mg PO Q4H PRN PRN Reason: FEVER OR PAIN Aspirin (Ecotrin -) 81 mg PO DAILY [facility] Last Admin: 11/28/16 10:42 Dose: 81 mg Atorvastatin Calcium (Lipitor -) 20 mg PO HS [facility] Last Admin: 11/27/16 21:03 Dose: 20 mg Carvedilol (Coreg -) 3.125 mg PO BID [facility] Last Admin: 11/28/16 10:44 Dose: 3.125 mg Cholecalciferol (Vitamin D3 -) 1,000 unit PO DAILY [facility] Last Admin: 11/28/16 10:43 Dose: 1,000 unit Heparin Sodium (Porcine) (Heparin -) 5,000 unit SQ BID [facility] Last Admin: 11/28/16 10:42 Dose: 5,000 unit Multivit/Ca Carb/B Cmplx/FA/Prenat (Nephro-Geni -) 1 tablet PO DAILY [facility] Last Admin: 11/27/16 11:58 Dose: 1 tablet Non-Formulary Medication ([place]-3 Fatty Acids [Fish Oil]) 1,000 mg PO TID [facility] Non-Formulary Medication (Ubidecarenone [Co Q-10]) 30 mg PO DAILY [facility] Sevelamer Carbonate (Renvela -) 800 mg PO TIDCM [facility] Last Admin: 11/28/16 12:36 Dose: 800 mg Zolpidem Tartrate (Ambien -) 5 mg PO HS [facility] Last Admin: 11/27/16 21:04 Dose: 5 mg - Objective Vital Signs: Vital Signs Temperature 98.2 F 11/28/16 10:00 Pulse Rate 85 11/28/16 10:00 Respiratory Rate 20 11/28/16 10:00 Blood Pressure 188/96 11/28/16 10:00 O2 Sat by Pulse Oximetry (%) 95 11/27/16 21:00 Constitutional: Yes: Well Nourished HENT: Yes: WNL, Atraumatic, Normocephalic Neck: Yes: WNL, Supple, Trachea Midline Cardiovascular: Yes: WNL, Regular Rate and Rhythm, S1, S2. No: JVD, Murmur, Rub Respiratory: Yes: Regular, CTA Bilaterally Gastrointestinal: Yes: WNL, Normal Bowel Sounds, Soft Musculoskeletal: Yes: WNL. No: Back Pain, Joint Stiffness Extremities: Yes: Other (Left LE Cellulitis) Peripheral Pulses: Left Doralis Pedis: 1+, Right Dorsalis Pedis: 1+ Labs: CBC, BMP 11/27/16 06:00 11/27/16 06:00 Problem List - Problems (1) Cellulitis Assessment/Plan: Diffuse Cellulitis on Vancomycin redness and swelling regressing Code(s): L03.90 - CELLULITIS, UNSPECIFIED Qualifiers: Site of cellulitis: extremity Site of cellulitis of extremity: lower extremity Laterality: left Qualified Code(s): L03.116 - Cellulitis of left lower limb; L03.116 - Cellulitis of left lower limb (2) CKD (chronic kidney disease) stage 5, GFR less than 15 ml/min Assessment/Plan: on HD at present euvolumic Code(s): N18.5 - CHRONIC KIDNEY DISEASE, STAGE 5 (3) Hypertension Assessment/Plan: Well controlled cont all home meds Code(s): I10 - ESSENTIAL (PRIMARY) HYPERTENSION (4) BPH (benign prostatic hyperplasia) Assessment/Plan: cont home meds Code(s): N40.0 - BENIGN PROSTATIC HYPERPLASIA WITHOUT LOWER URINRY TRACT SYMP
[2016-11-28] MEDS: VITAMIN B COMP W-C 1 EA TABLET PO SCH (14:09)
--- NOTE | 2016-11-28 15:43 | PN ---
Progress Note, Physician Chief Complaint: The patient seen in his room. Family visiting. 86 y/o patient admitted with acute confusion and infected foot ulcers. The patient has ESRD, and is on HD MWF. 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 Pt completed dialysis on Wednesday but was very weak, refused to go to the ER at that time. At home he was confused and remained so the the next day. Denies any fever, chills, N/V/D. No chest pain, abd pian. No flank pain. Does not make urine. No Rash. Reports that his left leg was swollen and red on presentation. Has a chronic wound on his left foot - Current Medication List Current Medications: Active Medications Acetaminophen (Tylenol -) 650 mg PO Q4H PRN PRN Reason: FEVER OR PAIN Aspirin (Ecotrin -) 81 mg PO DAILY [facility] Last Admin: 11/28/16 10:42 Dose: 81 mg Atorvastatin Calcium (Lipitor -) 20 mg PO HS [facility] Last Admin: 11/27/16 21:03 Dose: 20 mg Bacitracin (Bacitracin -) 1 applic TP DAILY [facility] Carvedilol (Coreg -) 3.125 mg PO BID [facility] Last Admin: 11/28/16 10:44 Dose: 3.125 mg Cholecalciferol (Vitamin D3 -) 1,000 unit PO DAILY [facility] Last Admin: 11/28/16 10:43 Dose: 1,000 unit Heparin Sodium (Porcine) (Heparin -) 5,000 unit SQ BID [facility] Last Admin: 11/28/16 10:42 Dose: 5,000 unit Multivit/Ca Carb/B Cmplx/FA/Prenat (Nephro-Geni -) 1 tablet PO DAILY [facility] Last Admin: 11/28/16 14:09 Dose: 1 tablet Sevelamer Carbonate (Renvela -) 800 mg PO TIDCM [facility] Last Admin: 11/28/16 12:36 Dose: 800 mg Zolpidem Tartrate (Ambien -) 5 mg PO HS [facility] Last Admin: 11/27/16 21:04 Dose: 5 mg - Objective Vital Signs: Vital Signs Temperature 98.2 F 11/28/16 10:00 Pulse Rate 85 11/28/16 10:00 Respiratory Rate 20 11/28/16 10:00 Blood Pressure 188/96 11/28/16 10:00 O2 Sat by Pulse Oximetry (%) 93 L 11/28/16 09:00 Constitutional: Yes: Well Nourished, Calm HENT: Yes: Normocephalic Neck: Yes: Supple Cardiovascular: Yes: S1, S2 Respiratory: Yes: Regular, CTA Bilaterally Gastrointestinal: Yes: Normal Bowel Sounds, Soft Genitourinary: Yes: Anuria Musculoskeletal: Yes: Back Pain Extremities: Yes: Other (Foot ulcers (L), and ulcer on the right toe) Labs: CBC, BMP 11/27/16 06:00 11/27/16 06:00 Problem List - Problems (1) Cellulitis Code(s): L03.90 - CELLULITIS, UNSPECIFIED Qualifiers: Site of cellulitis: extremity Site of cellulitis of extremity: lower extremity Laterality: left Qualified Code(s): L03.116 - Cellulitis of left lower limb; L03.116 - Cellulitis of left lower limb (2) ESRD (end stage renal disease) on dialysis Code(s): N18.6 - END STAGE RENAL DISEASE Z99.2 - DEPENDENCE ON RENAL DIALYSIS (3) Altered mental status Code(s): R41.82 - ALTERED MENTAL STATUS, UNSPECIFIED (4) HLD (hyperlipidemia) Code(s): E78.5 - HYPERLIPIDEMIA, UNSPECIFIED (5) Hypertension Code(s): I10 - ESSENTIAL (PRIMARY) HYPERTENSION (6) Shortness of breath Code(s): R06.02 - SHORTNESS OF BREATH (7) Ulcer Code(s): L98.499 - NON-PRESSURE CHRONIC ULCER OF SKIN OF SITES W UNSP SEVERITY Assessment/Plan This is a 86 year old gentleman with PMHx of 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 IV antibiotics as ordered. The confusion is remarkably better. There is an area of Pregangrenous changes of the right second tow. Will ask Dr. Hurley to evaluate any Vascular compromise. Next HD on Wednesday. Thank you. Merary Gallegos MD
[2016-11-28] MEDS: OMEGA PO SCH ×2 (16:07→17:23)
[2016-11-28] MEDS: UBIDECARENONE 30 MG PO SCH (16:07)
[2016-11-28] MEDS: FATTY ACIDS PO SCH ×2 (16:07→17:23)
[2016-11-28] MEDS: BACITRACIN 15 GM TUBE TOPICAL OINTMENT TP SCH (17:26)
[2016-11-28] MEDS: ATORVASTATIN CA 20 MG TABLET (FP) PO SCH (22:16)
[2016-11-28] MEDS: ZOLPIDEM TARTRATE 5 MG TABLET PO SCH (22:17)
[2016-11-29 08:24] LABS: ANION GAP 11 (8-16); CALCIUM 8.1 mg/dL (8.5-10.1); CO2 29 mmol/L (21-32); GLUCOSE,RANDOM 89 mg/dL (74-106)
[2016-11-29 08:33] LABS: BASOPHIL 0.6 % (0-2.0); EOSINOPHIL 1.9 % (0-4.5); MCH 33.2 pg (25.7-33.7); MCHC 32.8 g/dl (32.0-35.9); MEAN CELL VOLUME 101.4 fl (80-96); MEAN PLT VOLUME 7.9 fl (7.5-11.1); NEUTROPHILS 63.6 % (42.8-82.8); PLATELET COUNT 140 K/MM3 (134-434); RDW 15.2 % (11.9-15.9); WHITE BLOOD COUNT 4.2 K/mm3 (4.0-10.0)
[2016-11-29] MEDS: SEVELAMER CARBONATE 800 MG TAB (FP) PO SCH ×3 (08:35→17:33)
[2016-11-29 08:50] LABS: CREATININE 8.2 mg/dL (0.7-1.3)
[2016-11-29] MEDS ORDERED: PT OWN MED DRAWER 7, Y5N ONE (09:46)
[2016-11-29] MEDS: BACITRACIN 15 GM TUBE TOPICAL OINTMENT TP SCH (09:47)
[2016-11-29] MEDS: CHOLECALCIFEROL (VITAMIN D3) 1,000 UNIT TABLET (FP) PO SCH (09:48)
[2016-11-29] MEDS: CARVEDILOL 3.125 MG TABLET (FP) PO SCH ×2 (09:48→22:21)
[2016-11-29] MEDS: VITAMIN B COMP W-C 1 EA TABLET PO SCH (09:48)
[2016-11-29] MEDS: ASPIRIN COATED 81 MG TABLET.EC PO SCH (09:48)
[2016-11-29] MEDS: HEPARIN NA (PORCINE) 5,000 UNITS/ML 1ML VIAL SQ SCH ×2 (09:48→22:22)
--- NOTE | 2016-11-29 10:58 | CONSULT ---
Consult - History of Present Illness History of Present Illness: 86 yo man with ESRD on HD admitted with diagnosis of cellulitis of the left leg. He had swelling and a small wound on the left plantar foot. No fever or chills. - Past Medical History Cardio/Vascular: Yes: HTN, Hyperlipdemia Renal/: Yes: Renal Failure, BPH, Hemodialysis - Past Surgical History Past Surgical History: Yes: AV Fistula/Graft - Alcohol/Substance Use Hx Alcohol Use: No History of Substance Use: reports: None - Smoking History Smoking history: Former smoker Have you smoked in the past 12 months: No If you are a former smoker, when did you quit?: 30 yrs ago - Social History ADL: Independent History of Recent Travel: No Home Medications - Allergies Allergies/Adverse Reactions: Allergies Allergy/AdvReac Type Severity Reaction Status Date / Time No Known Allergies Allergy Verified 11/26/16 12:20 - Home Medications Home Medications: Ambulatory Orders Aspirin Coated [Ecotrin -] 81 mg PO DAILY #0 02/14/14 Atorvastatin Ca [Lipitor] 20 mg PO HS #0 NS 02/14/14 Carvedilol 3.125 mg PO BID #0 02/14/14 Cholecalciferol (Vitamin D3) [Vitamin D3] 1,000 unit PO DAILY #0 02/14/14 Folic Acid/Vit Bcomp,C [Dialyvite 800 Tablet] 0.8 mg PO DAILY #0 02/14/14 [place]-3 Fatty Acids [Fish Oil] 1,000 mg PO TID #0 02/14/14 Sevelamer HCl [Renagel] 800 mg PO TID #0 02/14/14 Ubidecarenone [Co Q-10] 30 mg PO DAILY #0 02/14/14 Zolpidem Tartrate 10 mg PO DAILY #0 02/14/14 Family Disease History - Family Disease History Family Disease History: Heart Disease: Brother, Sister Physical Exam Vital Signs: Vital Signs Temperature 98.0 F 11/29/16 08:56 Pulse Rate 72 11/29/16 08:56 Respiratory Rate 20 11/29/16 08:56 Blood Pressure 172/82 11/29/16 08:56 O2 Sat by Pulse Oximetry (%) 93 L 11/28/16 21:00 Constitutional: Yes: No Distress Eyes: Yes: EOM Intact Cardiovascular: Yes: Regular Rate and Rhythm Edema: No Integumentary: Yes: Other (Small plantar ulcer 1st met head wiith callused edges. No erythema.) Labs: CBC, BMP 11/29/16 06:00 11/29/16 06:00 Imaging - Results Ultrasound: Report Reviewed (Patent arterial flow in left leg to [employer].) Problem List - Problems (1) Ulcer Assessment/Plan: Small ulcer left foot, no evidence for deep infection. X-ray does not show osteomyelitis. WBC is normal. Rec: Bactroban to wound. Code(s): L98.499 - NON-PRESSURE CHRONIC ULCER OF SKIN OF SITES W UNSP SEVERITY
--- NOTE | 2016-11-29 13:12 | PN ---
Progress Note, Physician Chief Complaint: The patient seen in his room. with him. 86 y/o patient admitted with acute confusion and infected foot ulcers. The patient has ESRD, and is on HD MWF. Seen by Dr. Hurley. Comments noted. ? Right toe ulcer - Current Medication List Current Medications: Active Medications Acetaminophen (Tylenol -) 650 mg PO Q4H PRN PRN Reason: FEVER OR PAIN Aspirin (Ecotrin -) 81 mg PO DAILY [facility] Last Admin: 11/29/16 09:48 Dose: 81 mg Atorvastatin Calcium (Lipitor -) 20 mg PO HS [facility] Last Admin: 11/28/16 22:16 Dose: 20 mg Bacitracin (Bacitracin -) 1 applic TP DAILY [facility] Last Admin: 11/29/16 09:47 Dose: 1 appful Carvedilol (Coreg -) 3.125 mg PO BID [facility] Last Admin: 11/29/16 09:48 Dose: 3.125 mg Cholecalciferol (Vitamin D3 -) 1,000 unit PO DAILY [facility] Last Admin: 11/29/16 09:48 Dose: 1,000 unit Heparin Sodium (Porcine) (Heparin -) 5,000 unit SQ BID [facility] Last Admin: 11/29/16 09:48 Dose: 5,000 unit Multivit/Ca Carb/B Cmplx/FA/Prenat (Nephro-Geni -) 1 tablet PO DAILY [facility] Last Admin: 11/29/16 09:48 Dose: 1 tablet Sevelamer Carbonate (Renvela -) 800 mg PO TIDCM [facility] Last Admin: 11/29/16 12:16 Dose: 800 mg Zolpidem Tartrate (Ambien -) 5 mg PO HS [facility] Last Admin: 11/28/16 22:17 Dose: Not Given - Objective Vital Signs: Vital Signs Temperature 98.0 F 11/29/16 08:56 Pulse Rate 72 11/29/16 08:56 Respiratory Rate 20 11/29/16 08:56 Blood Pressure 172/82 11/29/16 08:56 O2 Sat by Pulse Oximetry (%) 93 L 11/28/16 21:00 Constitutional: Yes: Well Nourished, No Distress, Calm Eyes: Yes: Conjunctiva Clear HENT: Yes: Atraumatic Neck: Yes: Supple Cardiovascular: Yes: S1, S2 Respiratory: Yes: Regular, Diminished Gastrointestinal: Yes: Normal Bowel Sounds, Soft Extremities: Yes: Delayed Capillary Refill, Erythema Edema: LLE: Trace, RLE: Trace Neurological: Yes: Alert, Oriented Labs: CBC, BMP 11/29/16 06:00 11/29/16 06:00 Problem List - Problems (1) Cellulitis Code(s): L03.90 - CELLULITIS, UNSPECIFIED Qualifiers: Site of cellulitis: extremity Site of cellulitis of extremity: lower extremity Laterality: left Qualified Code(s): L03.116 - Cellulitis of left lower limb; L03.116 - Cellulitis of left lower limb (2) ESRD (end stage renal disease) on dialysis Code(s): N18.6 - END STAGE RENAL DISEASE Z99.2 - DEPENDENCE ON RENAL DIALYSIS (3) Altered mental status Code(s): R41.82 - ALTERED MENTAL STATUS, UNSPECIFIED (4) HLD (hyperlipidemia) Code(s): E78.5 - HYPERLIPIDEMIA, UNSPECIFIED (5) Hypertension Code(s): I10 - ESSENTIAL (PRIMARY) HYPERTENSION (6) Shortness of breath Code(s): R06.02 - SHORTNESS OF BREATH (7) Ulcer Code(s): L98.499 - NON-PRESSURE CHRONIC ULCER OF SKIN OF SITES W UNSP SEVERITY Assessment/Plan This is a 86 year old gentleman with PMHx of 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 IV antibiotics as ordered. The confusion is remarkably better. The patient to receive next dialysis tomorrow. Thank you. Merary Gallegos MD
[2016-11-29] MEDS: ZOLPIDEM TARTRATE 5 MG TABLET PO SCH (22:20)
[2016-11-29] MEDS: ATORVASTATIN CA 20 MG TABLET (FP) PO SCH (22:21)
--- NOTE | 2016-11-30 00:24 | PN ---
Progress Note, Physician Chief Complaint: No new complaints, left foot pain improving, no fever History of Present Illness: 86 yrs old M with H/O HTN, CKD stage 5 on HD present with Cellulites - Current Medication List Current Medications: Active Medications Acetaminophen (Tylenol -) 650 mg PO Q4H PRN PRN Reason: FEVER OR PAIN Aspirin (Ecotrin -) 81 mg PO DAILY [facility] Last Admin: 11/29/16 09:48 Dose: 81 mg Atorvastatin Calcium (Lipitor -) 20 mg PO HS [facility] Last Admin: 11/29/16 22:21 Dose: 20 mg Bacitracin (Bacitracin -) 1 applic TP DAILY [facility] Last Admin: 11/29/16 09:47 Dose: 1 appful Carvedilol (Coreg -) 3.125 mg PO BID [facility] Last Admin: 11/29/16 22:21 Dose: 3.125 mg Cholecalciferol (Vitamin D3 -) 1,000 unit PO DAILY [facility] Last Admin: 11/29/16 09:48 Dose: 1,000 unit Heparin Sodium (Porcine) (Heparin -) 5,000 unit SQ BID [facility] Last Admin: 11/29/16 22:22 Dose: 5,000 unit Multivit/Ca Carb/B Cmplx/FA/Prenat (Nephro-Geni -) 1 tablet PO DAILY [facility] Last Admin: 11/29/16 09:48 Dose: 1 tablet Sevelamer Carbonate (Renvela -) 800 mg PO TIDCM [facility] Last Admin: 11/29/16 17:33 Dose: 800 mg Zolpidem Tartrate (Ambien -) 5 mg PO HS [facility] Last Admin: 11/29/16 22:20 Dose: Not Given - Objective Vital Signs: Vital Signs Temperature 97.9 F 11/29/16 16:30 Pulse Rate 80 11/29/16 16:30 Respiratory Rate 18 11/29/16 16:30 Blood Pressure 155/81 11/29/16 16:30 O2 Sat by Pulse Oximetry (%) 93 L 11/29/16 09:00 Constitutional: Yes: Well Nourished HENT: Yes: WNL, Atraumatic, Normocephalic Neck: Yes: WNL, Supple, Trachea Midline Cardiovascular: Yes: WNL, Regular Rate and Rhythm, S1, S2. No: JVD, Murmur, Rub Respiratory: Yes: Regular, CTA Bilaterally Gastrointestinal: Yes: WNL, Normal Bowel Sounds, Soft Musculoskeletal: Yes: WNL. No: Back Pain, Joint Stiffness Extremities: Yes: Other (Left LE Cellulitis) Peripheral Pulses: Left Doralis Pedis: 1+, Right Dorsalis Pedis: 1+ Labs: CBC, BMP 11/29/16 06:00 11/29/16 06:00 Problem List - Problems (1) Cellulitis Assessment/Plan: Diffuse Cellulitis on Vancomycin redness and swelling regressing, grew polymicrobial most likely skin caroline. Code(s): L03.90 - CELLULITIS, UNSPECIFIED Qualifiers: Site of cellulitis: extremity Site of cellulitis of extremity: lower extremity Laterality: left Qualified Code(s): L03.116 - Cellulitis of left lower limb; L03.116 - Cellulitis of left lower limb (2) CKD (chronic kidney disease) stage 5, GFR less than 15 ml/min Assessment/Plan: on HD at present euvolumic Code(s): N18.5 - CHRONIC KIDNEY DISEASE, STAGE 5 (3) Hypertension Assessment/Plan: Well controlled cont all home meds Code(s): I10 - ESSENTIAL (PRIMARY) HYPERTENSION (4) BPH (benign prostatic hyperplasia) Assessment/Plan: cont home meds Code(s): N40.0 - BENIGN PROSTATIC HYPERPLASIA WITHOUT LOWER URINRY TRACT SYMP
--- NOTE | 2016-11-30 00:27 | PN ---
Progress Note, Physician Chief Complaint: No new complaints, left foot pain improving, no fever History of Present Illness: 86 yrs old M with H/O HTN, CKD stage 5 on HD present with Cellulites - Current Medication List Current Medications: Active Medications Acetaminophen (Tylenol -) 650 mg PO Q4H PRN PRN Reason: FEVER OR PAIN Aspirin (Ecotrin -) 81 mg PO DAILY [facility] Last Admin: 11/29/16 09:48 Dose: 81 mg Atorvastatin Calcium (Lipitor -) 20 mg PO HS [facility] Last Admin: 11/29/16 22:21 Dose: 20 mg Bacitracin (Bacitracin -) 1 applic TP DAILY [facility] Last Admin: 11/29/16 09:47 Dose: 1 appful Carvedilol (Coreg -) 3.125 mg PO BID [facility] Last Admin: 11/29/16 22:21 Dose: 3.125 mg Cholecalciferol (Vitamin D3 -) 1,000 unit PO DAILY [facility] Last Admin: 11/29/16 09:48 Dose: 1,000 unit Heparin Sodium (Porcine) (Heparin -) 5,000 unit SQ BID [facility] Last Admin: 11/29/16 22:22 Dose: 5,000 unit Multivit/Ca Carb/B Cmplx/FA/Prenat (Nephro-Geni -) 1 tablet PO DAILY [facility] Last Admin: 11/29/16 09:48 Dose: 1 tablet Sevelamer Carbonate (Renvela -) 800 mg PO TIDCM [facility] Last Admin: 11/29/16 17:33 Dose: 800 mg Zolpidem Tartrate (Ambien -) 5 mg PO HS [facility] Last Admin: 11/29/16 22:20 Dose: Not Given - Objective Vital Signs: Vital Signs Temperature 97.9 F 11/29/16 16:30 Pulse Rate 80 11/29/16 16:30 Respiratory Rate 18 11/29/16 16:30 Blood Pressure 155/81 11/29/16 16:30 O2 Sat by Pulse Oximetry (%) 93 L 11/29/16 09:00 Constitutional: Yes: Well Nourished HENT: Yes: WNL, Atraumatic, Normocephalic Neck: Yes: WNL, Supple, Trachea Midline Cardiovascular: Yes: WNL, Regular Rate and Rhythm, S1, S2. No: JVD, Murmur, Rub Respiratory: Yes: Regular, CTA Bilaterally Gastrointestinal: Yes: WNL, Normal Bowel Sounds, Soft Musculoskeletal: Yes: WNL. No: Back Pain, Joint Stiffness Extremities: Yes: Other (Left LE Cellulitis) Peripheral Pulses: Left Doralis Pedis: 1+, Right Dorsalis Pedis: 1+ Labs: CBC, BMP 11/29/16 06:00 11/29/16 06:00 Problem List - Problems (1) Cellulitis Assessment/Plan: Diffuse Cellulitis on Vancomycin redness and swelling regressing, grew polymicrobial most likely skin caroline. Code(s): L03.90 - CELLULITIS, UNSPECIFIED Qualifiers: Site of cellulitis: extremity Site of cellulitis of extremity: lower extremity Laterality: left Qualified Code(s): L03.116 - Cellulitis of left lower limb; L03.116 - Cellulitis of left lower limb (2) CKD (chronic kidney disease) stage 5, GFR less than 15 ml/min Assessment/Plan: on HD at present euvolumic Code(s): N18.5 - CHRONIC KIDNEY DISEASE, STAGE 5 (3) Hypertension Assessment/Plan: Well controlled cont all home meds Code(s): I10 - ESSENTIAL (PRIMARY) HYPERTENSION (4) BPH (benign prostatic hyperplasia) Assessment/Plan: cont home meds Code(s): N40.0 - BENIGN PROSTATIC HYPERPLASIA WITHOUT LOWER URINRY TRACT SYMP
[2016-11-30 09:06] LABS: BASOPHIL 1.1 % (0-2.0); MCH 33.1 pg (25.7-33.7); MEAN CELL VOLUME 100.2 fl (80-96); MEAN PLT VOLUME 7.8 fl (7.5-11.1); NEUTROPHILS 65.4 % (42.8-82.8); PLATELET COUNT 142 K/MM3 (134-434); WHITE BLOOD COUNT 4.8 K/mm3 (4.0-10.0)
[2016-11-30 09:29] LABS: ALBUMIN 3.1 g/dl (3.4-5.0); ANION GAP 13 (8-16); CALCIUM 7.8 mg/dL (8.5-10.1); CO2 24 mmol/L (21-32); GLUCOSE,RANDOM 101 mg/dL (74-106); SGOT/AST 14 U/L (15-37); SGPT/ALT 17 U/L (12-78)
[2016-11-30] MEDS: SEVELAMER CARBONATE 800 MG TAB (FP) PO SCH ×3 (09:36→18:09)
[2016-11-30 09:37] LABS: ALK PHOS 74 U/L (45-117); BILIRUBIN,TOTAL 0.5 mg/dL (0.2-1.0); TOT PROT 7.2 g/dl (6.4-8.2)
[2016-11-30 09:45] LABS: CREATININE 9.9 mg/dL (0.7-1.3)
[2016-11-30] MEDS ORDERED: PT OWN MED DRAWER 7, Y5N ONE (12:40)
--- NOTE | 2016-11-30 12:46 | PN ---
Progress Note, Physician Chief Complaint: The patient seen in his room. with him. 86 y/o patient admitted with acute confusion and infected foot ulcers. The patient has ESRD, and is on HD MWF. Seen by Dr. Hurley. Comments noted. ? Right toe ulcer History of Present Illness: This is a 86 year old gentleman with PMHx of 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 Denies any fever, chills, N/V/D. No chest pain, abd pian. No flank pain. Does not make urine. No Rash. Reports that his left leg was swollen and red on presentation. Has a chronic wound on his left foot. Very unsteady on feel. Now has pain in the right shoulder. Had Hemodialysis earlier. Tolerated well. The foot ulcers are still unhealed. The patient and requesting a Podiatry evaluation other than by Dr. Parker. - Current Medication List Current Medications: Active Medications Acetaminophen (Tylenol -) 650 mg PO Q4H PRN PRN Reason: FEVER OR PAIN Aspirin (Ecotrin -) 81 mg PO DAILY [facility] Last Admin: 11/29/16 09:48 Dose: 81 mg Atorvastatin Calcium (Lipitor -) 20 mg PO HS [facility] Last Admin: 11/29/16 22:21 Dose: 20 mg Bacitracin (Bacitracin -) 1 applic TP DAILY [facility] Last Admin: 11/29/16 09:47 Dose: 1 appful Carvedilol (Coreg -) 3.125 mg PO BID [facility] Last Admin: 11/29/16 22:21 Dose: 3.125 mg Cholecalciferol (Vitamin D3 -) 1,000 unit PO DAILY [facility] Last Admin: 11/29/16 09:48 Dose: 1,000 unit Heparin Sodium (Porcine) (Heparin -) 5,000 unit SQ BID [facility] Last Admin: 11/29/16 22:22 Dose: 5,000 unit Multivit/Ca Carb/B Cmplx/FA/Prenat (Nephro-Geni -) 1 tablet PO DAILY [facility] Last Admin: 11/29/16 09:48 Dose: 1 tablet Sevelamer Carbonate (Renvela -) 800 mg PO TIDCM [facility] Last Admin: 11/30/16 09:36 Dose: Not Given Zolpidem Tartrate (Ambien -) 5 mg PO HS [facility] Last Admin: 11/29/16 22:20 Dose: Not Given - Objective Vital Signs: Vital Signs Temperature 98.4 F 11/30/16 08:30 Pulse Rate 34 L 11/30/16 11:00 Respiratory Rate 18 11/30/16 11:00 Blood Pressure 149/70 11/30/16 11:00 O2 Sat by Pulse Oximetry (%) 93 L 11/29/16 21:00 Constitutional: Yes: Calm, Anxious Eyes: Yes: Conjunctiva Clear HENT: Yes: Normocephalic Cardiovascular: Yes: Regular Rate and Rhythm, S1, S2 Respiratory: Yes: CTA Bilaterally, Diminished Gastrointestinal: Yes: Normal Bowel Sounds, Soft Labs: CBC, BMP 11/30/16 08:30 11/30/16 08:30 Problem List - Problems (1) Cellulitis Code(s): L03.90 - CELLULITIS, UNSPECIFIED Qualifiers: Site of cellulitis: extremity Site of cellulitis of extremity: lower extremity Laterality: left Qualified Code(s): L03.116 - Cellulitis of left lower limb; L03.116 - Cellulitis of left lower limb (2) ESRD (end stage renal disease) on dialysis Code(s): N18.6 - END STAGE RENAL DISEASE Z99.2 - DEPENDENCE ON RENAL DIALYSIS (3) Altered mental status Code(s): R41.82 - ALTERED MENTAL STATUS, UNSPECIFIED (4) HLD (hyperlipidemia) Code(s): E78.5 - HYPERLIPIDEMIA, UNSPECIFIED (5) Hypertension Code(s): I10 - ESSENTIAL (PRIMARY) HYPERTENSION (6) Shortness of breath Code(s): R06.02 - SHORTNESS OF BREATH (7) Ulcer Code(s): L98.499 - NON-PRESSURE CHRONIC ULCER OF SKIN OF SITES W UNSP SEVERITY Assessment/Plan This is a 86 year old gentleman with PMHx of 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 IV antibiotics as ordered. The confusion is remarkably better. Very unsteady on feet. Also has right shoulder pain. Will get PT. Will get podiatry consult by Dr. Bunch. Thank you. Merary Gallegos MD
[2016-11-30] MEDS: CHOLECALCIFEROL (VITAMIN D3) 1,000 UNIT TABLET (FP) PO SCH (12:56)
[2016-11-30] MEDS: CARVEDILOL 3.125 MG TABLET (FP) PO SCH ×2 (12:56→21:17)
[2016-11-30] MEDS: ASPIRIN COATED 81 MG TABLET.EC PO SCH (12:56)
[2016-11-30] MEDS: VITAMIN B COMP W-C 1 EA TABLET PO SCH (12:57)
[2016-11-30] MEDS: HEPARIN NA (PORCINE) 5,000 UNITS/ML 1ML VIAL SQ SCH ×2 (12:57→21:17)
[2016-11-30] MEDS: BACITRACIN 15 GM TUBE TOPICAL OINTMENT TP SCH (14:00)
--- NOTE | 2016-11-30 16:50 | PN ---
Progress Note, Physician Chief Complaint: Patient complains of shoulder pain, per this is chronic and unchanged. No cp, sob, n/v. says mental status is at baseline - Current Medication List Current Medications: Active Medications Acetaminophen (Tylenol -) 650 mg PO Q4H PRN PRN Reason: FEVER OR PAIN Aspirin (Ecotrin -) 81 mg PO DAILY [facility] Last Admin: 11/30/16 12:56 Dose: 81 mg Atorvastatin Calcium (Lipitor -) 20 mg PO HS [facility] Last Admin: 11/29/16 22:21 Dose: 20 mg Bacitracin (Bacitracin -) 1 applic TP DAILY [facility] Last Admin: 11/29/16 09:47 Dose: 1 appful Carvedilol (Coreg -) 3.125 mg PO BID [facility] Last Admin: 11/30/16 12:56 Dose: 3.125 mg Cholecalciferol (Vitamin D3 -) 1,000 unit PO DAILY [facility] Last Admin: 11/30/16 12:56 Dose: 1,000 unit Heparin Sodium (Porcine) (Heparin -) 5,000 unit SQ BID [facility] Last Admin: 11/30/16 12:57 Dose: 5,000 unit Multivit/Ca Carb/B Cmplx/FA/Prenat (Nephro-Geni -) 1 tablet PO DAILY [facility] Last Admin: 11/30/16 12:57 Dose: 1 tablet Sevelamer Carbonate (Renvela -) 800 mg PO TIDCM [facility] Last Admin: 11/30/16 12:56 Dose: 800 mg Zolpidem Tartrate (Ambien -) 5 mg PO HS [facility] Last Admin: 11/29/16 22:20 Dose: Not Given - Objective Vital Signs: Vital Signs Temperature 37.0 C 11/30/16 15:09 Pulse Rate 98 H 11/30/16 15:09 Respiratory Rate 18 11/30/16 15:09 Blood Pressure 152/84 11/30/16 15:09 O2 Sat by Pulse Oximetry (%) 93 L 11/29/16 21:00 Constitutional: Yes: Well Nourished, No Distress, Calm Cardiovascular: Yes: Regular Rate and Rhythm. No: Gallop, Murmur, Rub Respiratory: Yes: Regular, CTA Bilaterally. No: Rales, Rhonchi, Wheezes Gastrointestinal: Yes: Normal Bowel Sounds, Soft. No: Distention, Tenderness Extremities: Yes: WNL Edema: No Labs: CBC, BMP 11/30/16 08:30 11/30/16 08:30 Problem List - Problems (1) Cellulitis Code(s): L03.90 - CELLULITIS, UNSPECIFIED Qualifiers: Site of cellulitis: extremity Site of cellulitis of extremity: lower extremity Laterality: left Qualified Code(s): L03.116 - Cellulitis of left lower limb; L03.116 - Cellulitis of left lower limb (2) ESRD (end stage renal disease) on dialysis Code(s): N18.6 - END STAGE RENAL DISEASE Z99.2 - DEPENDENCE ON RENAL DIALYSIS (3) BPH (benign prostatic hyperplasia) Code(s): N40.0 - BENIGN PROSTATIC HYPERPLASIA WITHOUT LOWER URINRY TRACT SYMP (4) HLD (hyperlipidemia) Code(s): E78.5 - HYPERLIPIDEMIA, UNSPECIFIED (5) Hypertension Code(s): I10 - ESSENTIAL (PRIMARY) HYPERTENSION (6) Ulcer Code(s): L98.499 - NON-PRESSURE CHRONIC ULCER OF SKIN OF SITES W UNSP SEVERITY Assessment/Plan (1) Cellulitis Assessment/Plan: -x-ray negative for osteomyelitis -ID following, stopped antibiotics -doing well off antibiotics -d/c planning Code(s): L03.90 - CELLULITIS, UNSPECIFIED Qualifiers: Site of cellulitis: extremity Site of cellulitis of extremity: lower extremity Laterality: left Qualified Code(s): L03.116 - Cellulitis of left lower limb; L03.116 - Cellulitis of left lower limb (2) ESRD (end stage renal disease) on dialysis Assessment/Plan: -nephrology following -HD today Code(s): N18.6 - END STAGE RENAL DISEASE Z99.2 - DEPENDENCE ON RENAL DIALYSIS (3) BPH (benign prostatic hyperplasia) Assessment/Plan: -monitor Code(s): N40.0 - BENIGN PROSTATIC HYPERPLASIA WITHOUT LOWER URINRY TRACT SYMP (4) HLD (hyperlipidemia) Assessment/Plan: -continue lipitor Code(s): E78.5 - HYPERLIPIDEMIA, UNSPECIFIED (5) Hypertension Assessment/Plan: -continue coreg -may improve with HD Code(s): I10 - ESSENTIAL (PRIMARY) HYPERTENSION (6) Ulcer Assessment/Plan: -chronic heel ulcer -monitor -outpatient follow up Code(s): L98.499 - NON-PRESSURE CHRONIC ULCER OF SKIN OF SITES W UNSP SEVERITY Dispo -d/c tomorrow with [facility]
[2016-11-30] MEDS: ATORVASTATIN CA 20 MG TABLET (FP) PO SCH (21:17)
[2016-11-30] MEDS: ZOLPIDEM TARTRATE 5 MG TABLET PO SCH (21:17)
[2016-12-01 07:45] LABS: BASOPHIL 0.4 % (0-2.0); MCH 33.4 pg (25.7-33.7); MCHC 33.1 g/dl (32.0-35.9); MEAN PLT VOLUME 8.1 fl (7.5-11.1); NEUTROPHILS 60.5 % (42.8-82.8); PLATELET COUNT 139 K/MM3 (134-434); RDW 14.7 % (11.9-15.9); WHITE BLOOD COUNT 3.8 K/mm3 (4.0-10.0)
[2016-12-01 08:21] LABS: ANION GAP 14 (8-16); CO2 29 mmol/L (21-32); CREATININE 6.6 mg/dL (0.7-1.3); GLUCOSE,RANDOM 74 mg/dL (74-106); MAGNESIUM 2.2 mg/dL (1.8-2.4)
[2016-12-01] MEDS ORDERED: PT OWN MED DRAWER 7, Y5N ONE (08:37)
[2016-12-01] MEDS: CHOLECALCIFEROL (VITAMIN D3) 1,000 UNIT TABLET (FP) PO SCH ×2 (08:42→10:55)
[2016-12-01] MEDS: HEPARIN NA (PORCINE) 5,000 UNITS/ML 1ML VIAL SQ SCH ×2 (08:42→10:55)
[2016-12-01] MEDS: SEVELAMER CARBONATE 800 MG TAB (FP) PO SCH ×2 (08:42→13:54)
[2016-12-01] MEDS: ASPIRIN COATED 81 MG TABLET.EC PO SCH ×2 (08:42→10:55)
[2016-12-01] MEDS: CARVEDILOL 3.125 MG TABLET (FP) PO SCH ×2 (08:42→10:55)
[2016-12-01] MEDS: VITAMIN B COMP W-C 1 EA TABLET PO SCH ×2 (08:43→10:55)
--- NOTE | 2016-12-01 11:55 | PN ---
Progress Note, Physician Chief Complaint: The patient seen in his room. Seems slightly confused. with him. The foot ulcer is open, but no drainage. Awaiting Podiatry eval. 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 Denies any fever, chills, N/V/D. No chest pain, abd pian. No flank pain. Does not make urine. No Rash. Reports that his left leg was swollen and red on presentation. Has a chronic wound on his left foot. Very unsteady on feel. Now has pain in the right shoulder. Had Hemodialysis earlier. Tolerated well. The foot ulcers are still unhealed. The patient and requesting a Podiatry evaluation other than by Dr. Parker. - Current Medication List Current Medications: Active Medications Acetaminophen (Tylenol -) 650 mg PO Q4H PRN PRN Reason: FEVER OR PAIN Aspirin (Ecotrin -) 81 mg PO DAILY [facility] Last Admin: 12/01/16 10:55 Dose: Not Given Atorvastatin Calcium (Lipitor -) 20 mg PO HS [facility] Last Admin: 11/30/16 21:17 Dose: 20 mg Bacitracin (Bacitracin -) 1 applic TP DAILY [facility] Last Admin: 11/30/16 14:00 Dose: 1 applic Carvedilol (Coreg -) 3.125 mg PO BID [facility] Last Admin: 12/01/16 10:55 Dose: Not Given Cholecalciferol (Vitamin D3 -) 1,000 unit PO DAILY [facility] Last Admin: 12/01/16 10:55 Dose: Not Given Heparin Sodium (Porcine) (Heparin -) 5,000 unit SQ BID [facility] Last Admin: 12/01/16 10:55 Dose: Not Given Multivit/Ca Carb/B Cmplx/FA/Prenat (Nephro-Geni -) 1 tablet PO DAILY [facility] Last Admin: 12/01/16 10:55 Dose: Not Given Sevelamer Carbonate (Renvela -) 800 mg PO TIDCM [facility] Last Admin: 12/01/16 08:42 Dose: 800 mg Zolpidem Tartrate (Ambien -) 5 mg PO HS [facility] Last Admin: 11/30/16 21:17 Dose: 5 mg - Objective Vital Signs: Vital Signs Temperature 98.1 F 12/01/16 11:15 Pulse Rate 77 12/01/16 11:15 Respiratory Rate 20 12/01/16 11:15 Blood Pressure 152/75 12/01/16 11:15 O2 Sat by Pulse Oximetry (%) 95 11/30/16 21:00 Constitutional: Yes: No Distress, Anxious Eyes: Yes: Conjunctiva Clear HENT: Yes: Normocephalic Neck: Yes: Trachea Midline Cardiovascular: Yes: S1, S2 Respiratory: Yes: CTA Bilaterally Gastrointestinal: Yes: Normal Bowel Sounds, Soft Edema: LLE: Trace (Same side as the foot ulcers) Neurological: Yes: Alert, Confusion Labs: CBC, BMP 12/01/16 07:25 12/01/16 07:25 Problem List - Problems (1) Cellulitis Code(s): L03.90 - CELLULITIS, UNSPECIFIED Qualifiers: Site of cellulitis: extremity Site of cellulitis of extremity: lower extremity Laterality: left Qualified Code(s): L03.116 - Cellulitis of left lower limb; L03.116 - Cellulitis of left lower limb (2) ESRD (end stage renal disease) on dialysis Code(s): N18.6 - END STAGE RENAL DISEASE Z99.2 - DEPENDENCE ON RENAL DIALYSIS (3) Altered mental status Code(s): R41.82 - ALTERED MENTAL STATUS, UNSPECIFIED (4) HLD (hyperlipidemia) Code(s): E78.5 - HYPERLIPIDEMIA, UNSPECIFIED (5) Hypertension Code(s): I10 - ESSENTIAL (PRIMARY) HYPERTENSION (6) Shortness of breath Code(s): R06.02 - SHORTNESS OF BREATH (7) Ulcer Code(s): L98.499 - NON-PRESSURE CHRONIC ULCER OF SKIN OF SITES W UNSP SEVERITY Assessment/Plan This is a 86 year old gentleman with PMHx of 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 The ulcer on the sole of the foot is dry , but very foul smelling. Very unsteady on feet. Also has right shoulder pain. PT as ordered. Awaiting Podiatry eval. Thank you. Merary Gallegos MD
[2016-12-01] MEDS: BACITRACIN 15 GM TUBE TOPICAL OINTMENT TP SCH (13:54)
[2016-12-01 14:52] VITALS: BP 118/70; PULSE 89; TEMP 97.9
--- NOTE | 2016-12-01 15:04 | DS ---
Physical Examination Vital Signs: Vital Signs Temperature 36.6 C 12/01/16 14:51 Pulse Rate 89 12/01/16 14:51 Respiratory Rate 20 12/01/16 14:51 Blood Pressure 118/70 12/01/16 14:51 O2 Sat by Pulse Oximetry (%) 95 11/30/16 21:00 Labs: CBC, BMP 12/01/16 07:25 12/01/16 07:25 Discharge Summary Reason For Visit: CELLULITIS Current Active Problems CKD (chronic kidney disease) stage 5, GFR less than 15 ml/min (Acute) Cellulitis (Acute) ESRD (end stage renal disease) on dialysis (Acute) Condition: Good - Instructions Diet, Activity, Other Instructions: resume previous diet and activity Referrals: Kristopher Dunlap MD [Staff Physician] - Merary Gallegos MD [Staff Physician] - Ankita Case MD [Staff Physician] - Main Hernandez MD [Staff Physician] - Disposition: [facility]/HOME HEALTH CARE - Home Medications Comprehensive Discharge Medication List: Ambulatory Orders Aspirin Coated [Ecotrin -] 81 mg PO DAILY #0 02/14/14 Atorvastatin Ca [Lipitor] 20 mg PO HS #0 NS 02/14/14 Carvedilol 3.125 mg PO BID #0 02/14/14 Cholecalciferol (Vitamin D3) [Vitamin D3] 1,000 unit PO DAILY #0 02/14/14 Folic Acid/Vit Bcomp,C [Dialyvite 800 Tablet] 0.8 mg PO DAILY #0 02/14/14 [place]-3 Fatty Acids [Fish Oil] 1,000 mg PO TID #0 02/14/14 Sevelamer HCl [Renagel] 800 mg PO TID #0 02/14/14 Ubidecarenone [Co Q-10] 30 mg PO DAILY #0 02/14/14 Zolpidem Tartrate 10 mg PO DAILY #0 02/14/14 Bacitracin - [Bacitracin Topical Ointment -] 1 applic TP DAILY #1 tube 12/01/16
--- NOTE | 2016-12-01 15:42 | CONSULT ---
Consult - text type - Consultation Consultation Note: Podiatry Consultation: 86 year old M presents for admission with confusion, difficulty walking. Patient states that he has left foot ulcers for many months, currently being treated by his outside executive coach. He has been using silvadene on the wounds for local wound care. Does have history of recurrent cellulitis on the leg. 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 He denies F/V/N/C/SOB/CP. He is afebrile, VSS. PMHx: HTN, HLP, ESRD on HD, BPH Meds: noted in chart ALL: NKMA SOLO: L foot: pedal pulses palpable, TG wnl, CFT brisk to all toes. There is a sub- 1st metatarsal pressure ulcer with granular base, hyperkeratotic borders, no probing to bone, no purulence, no fluctuance, no periwound erythema, no ascending cellulitis, no signs of active infection. There is a sub-5th metatarsa pressure ulcer with granular base, hyperkeratotic borders, no probing to bone, no purulence, no fluctuance, no ascending cellulitis, no signs of active infection. There is a plantar heel pressure ulcer with granular base, hyperkeratotic borders, no probing to bone, no purulence, no fluctuance, no ascending cellulitis, no signs of active infection. WBC: 3.8 Wound Cx: mixed species Blood Cx: no growth x 5 days L foot XR: no radiographic evidence of osteomyelitis Imp: 86 year old M with L foot pressure ulcers, grade 3 1. Excisional debridement L foot pressure ulcers to subcutaneous tissue using # 15 blade scalpel. Patient tolerated the procedure well without complications. 2. Recommend bactroban ointment daily to L foot ulcers. Patient and his explained wound care instructions. 3. Offloading measures discussed with patient. 4. Upon discharge should f/u with me in wound healing center [phone]. If symptoms worsen can investigate further with bone scan or MRI. Thank you for the courtesy of this consultation. Valentine Hernandez DPM
== END 2016-12-01 17:30 | disposition home health service (06) | DRG 570 ==
LOC: JER 11:54 → JERBED 16:53 → J8W 21:54
PROVIDERS: ADMIT Specialist; ATTEND Specialist
PROC: 5A1D70Z Performance of Urinary Filtration, Intermittent, Less than 6 Hours Per Day (ICD-10-PCS; 2016-11-27)
PROC: 0JBR0ZZ Excision of Left Foot Subcutaneous Tissue and Fascia, Open Approach (ICD-10-PCS; principal; 2016-12-01)
DX: L03.116 Cellulitis of left lower limb (principal); N18.6 End stage renal disease; I12.0 Hypertensive chronic kidney disease with stage 5 chronic kidney disease or end stage renal disease; L97.408 Non-pressure chronic ulcer of unspecified heel and midfoot with other specified severity; L97.528 Non-pressure chronic ulcer of other part of left foot with other specified severity; R50.9 Fever, unspecified; E78.5 Hyperlipidemia, unspecified; R26.81 Unsteadiness on feet; N40.0 Benign prostatic hyperplasia without lower urinary tract symptoms; R41.82 Altered mental status, unspecified; D63.1 Anemia in chronic kidney disease; Z87.891 Personal history of nicotine dependence; Z99.2 Dependence on renal dialysis
CPT/HCPCS: 36415; 71010-TC; 73630-TC-LT; 80048; 80053; 83605; 83735; 84100; 85025; 86704; 86706; 86708; 86803; 87040; 87070; 87186; 87205; 87340; 93005; 93010; 93926-TC; 93971-TC; 97116-GP; 97161-GP; 99285-25; G0480; J1644

== ENCOUNTER 2017-03-12 14:43 | Observation (INO) | payer BC, OTHER ==
--- NOTE | 2017-03-12 14:55 | PDOC ---
Rapid Medical Evaluation Time Seen by Provider: 03/12/17 14:49 Medical Evaluation: Allergies Allergy/AdvReac Type Severity Reaction Status Date / Time No Known Allergies Allergy Verified 11/26/16 12:20 I have performed a brief in-person evaluation of this patient. The patient presents with a chief complaint of: from dialysis today with weakness; can't stand Pertinent physical exam findings: none I have ordered the following: EKG, labs The patient will proceed to the ED for further evaluation. Discharge Disposition - Referrals Referrals: Kristopher Dunlap MD [Primary Care Provider] - - Patient Instructions - Post Discharge Activity
[2017-03-12 15:24] LABS: BASO % 0.5 % (0-2.0); EOS % 0.4 % (0-4.5); HEMOGLOBIN 14.4 GM/dL (11.7-16.9); MCH 34.1 pg (25.7-33.7); MCHC 33.6 g/dl (32.0-35.9); MEAN CELL VOLUME 101.7 fl (80-96); MEAN PLT VOLUME 8.1 fl (7.5-11.1); MONO % 11.4 % (3.8-10.2); NEUT % 68.7 % (42.8-82.8); PLATELET COUNT 148 K/MM3 (134-434); RBC 4.22 M/mm3 (4.00-5.60); RDW 14.2 % (11.9-15.9)
[2017-03-12 15:55] LABS: ALBUMIN 3.7 g/dl (3.4-5.0); ANION GAP 9 (8-16); BILIRUBIN,TOTAL 0.5 mg/dL (0.2-1.0); BLOOD UREA NITROGEN 24 mg/dL (7-18); CALCIUM 8.8 mg/dL (8.5-10.1); CHLORIDE 99 mmol/L (98-107); CO2 27 mmol/L (21-32); CREATININE 6.1 mg/dL (0.7-1.3); GLUCOSE,RANDOM 98 mg/dL (74-106); INR 1.02 (0.82-1.09); POTASSIUM 4.2 mmol/L (3.5-5.1); PROTHROMBIN TIME (PATIENT) 11.5 SEC (9.98-11.88); SGOT/AST 13 U/L (15-37); SGPT/ALT 18 U/L (12-78); SODIUM 135 mmol/L (136-145); TOT PROT 8.5 g/dl (6.4-8.2)
[2017-03-12 16:09] LABS: ALK PHOS 86 U/L (45-117)
--- NOTE | 2017-03-12 16:58 | PDOC ---
History of Present Illness - General History Source: Patient Exam Limitations: No Limitations <Emre Ambrocio - Last Filed: 03/12/17 20:27> - General History Source: Patient Exam Limitations: No Limitations - History of Present Illness Initial Comments: 03/13/17 00:40 Patient is an 87 year old male with a significant past medical history of HTN, Hyperlipidemia, Renal Failure, BPH, Hemodialysis, and Anemia, who presents to the ED with complaints of bilateral lower extremity weakness that began this afternoon. Patient reports receiving his Dialysis this afternoon when he was suddenly experienced bilateral leg weakness when he attempted to stand. He reports not being able to walk after receiving his dialysis but denies falling or hitting his head. Patient reports experiencing dizziness secondary to bilateral leg weakness. Patient reports experiencing left shoulder pain, and is unsure how long it has been present. Denies pain, trauma to affected area. Denies chest pain, Sob. Denies nausea, vomiting. Denies diarrhea, constipation, dysuria, hematuria. Denies any other symptoms. No back apin, numbness/tingling. Denies any vision changes. Allergies: None Social history: Former smoker (Last 30 years). No alcohol. No illicit drugs. Surgical history: AV Fistula/Graft PMD: Dr. Dunlap Business Intelligence Analyst: Dr. Grace. Vascular Surgeon: Dr. Hurley <Kee Burns - Last Filed: 03/13/17 00:41> - General Chief Complaint: Weakness Stated Complaint: WEAKNESS Time Seen by Provider: 03/12/17 14:49 Past History - Past Medical History Anemia: No Asthma: No Cancer: Yes (LEFT FOOT) Cardiac Disorders: No CVA: No COPD: No CHF: No Dementia: No Diabetes: No Dialysis: Yes GI Disorders: No Disorders: No HTN: Yes Hypercholesterolemia: Yes Liver Disease: No Seizures: No Thyroid Disease: No - Surgical History Abdominal Surgery: No Appendectomy: Yes Cardiac Surgery: No Cholecystectomy: No Lung Surgery: No Neurologic Surgery: No Orthopedic Surgery: No - Suicide/Smoking/Psychosocial Hx Smoking History: Former smoker Have you smoked in the past 12 months: No If you are a former smoker, when did you quit?: 30 yrs ago Information on smoking cessation initiated: No Hx Alcohol Use: No Drug/Substance Use Hx: No Substance Use Type: None Hx Substance Use Treatment: No <Emre Ambrocio - Last Filed: 03/12/17 20:27> <Kee Burns - Last Filed: 03/13/17 00:41> - Past Medical History Allergies/Adverse Reactions: Allergies Allergy/AdvReac Type Severity Reaction Status Date / Time No Known Allergies Allergy Verified 03/12/17 14:54 Home Medications: Ambulatory Orders Aspirin Coated [Ecotrin -] 81 mg PO DAILY #0 02/14/14 Atorvastatin Ca [Lipitor] 20 mg PO HS #0 NS 02/14/14 Carvedilol 3.125 mg PO BID #0 02/14/14 Cholecalciferol (Vitamin D3) [Vitamin D3] 1,000 unit PO DAILY #0 02/14/14 Folic Acid/Vit B Complex and C [Dialyvite 800 Tablet] 0.8 mg PO DAILY #0 [place]-3 Fatty Acids [Fish Oil] 1,000 mg PO TID #0 02/14/14 Sevelamer HCl [Renagel] 800 mg PO TID #0 02/14/14 Ubidecarenone [Co Q-10] 30 mg PO DAILY #0 02/14/14 Bacitracin - [Bacitracin Topical Ointment -] 1 applic TP DAILY #1 tube 12/01/16 Gentamicin 0.1% Ointment [Garamycin 0.1% Ointment -] 1 applic TP BID #1 tube Gentamicin 0.1% Ointment [Garamycin 0.1% Ointment -] 1 applic TP DAILY #1 tube 01/26/17 Review of Systems - Review of Systems Able to Perform ROS?: Yes Comments:: 03/13/17 00:41 CONSTITUTIONAL: No reported: Fever, Chills, Diaphoresis, Generalized Weakness, Malaise, Loss of Appetite HEENT: No reported: Rhinorrhea, Nasal Congestion, Throat Pain, Throat Swelling, Difficulty Swallowing, Mouth Swelling, Ear Pain, Eye Pain, Visual Changes CARDIOVASCULAR: No reported: Chest Pain, Syncope, Palpitations, Irregular Heart Rate, Lightheadedness, Peripheral Edema RESPIRATORY: No reported: Cough, Shortness of Breath, SOB with Exertion, Orthopnea, Wheezing , Stridor, Hemoptysis GASTROINTESTINAL: No reported: Abdominal pain, Abdominal Distension, Nausea, Vomiting, Diarrhea, Constipation, Melena, Hematochezia GENITOURINARY: No reported: Dysuria, Frequency, Urgency, Hesitancy, Flank Pain, Genital Pain MUSCULOSKELETAL: +Left shoulder pain (chronic) No reported: Myalgia, Arthralgia, Joint Swelling, Back pain, Neck Pain SKIN: No reported: Rash, Itching, Pallor HEMATOLOGIC/IMMUNOLOGIC: No reported: Easy Bleeding, Easy Bruising, Lymphadenopathy, Frequent infections ENDOCRINE: No reported: Unexplained Weight Gain, Unexplained Weight Loss, Heat Intolerance , Cold Intolerance NEUROLOGIC: +Bilateral leg weakness. +Dizziness. +Unsteady Gait. No reported: Headache,, Paresthesias, Vertigo, Lightheadedness, Seizure, Mental Status Changes, Incontinence PSYCHIATRIC: No reported: Anxiety, Depression All Other Systems: Reviewed and Negative <Kee Burns - Last Filed: 03/13/17 00:41> *Physical Exam - Vital Signs Last Vital Signs Temp Pulse Resp BP Pulse Ox 98.3 F 86 18 123/79 100 03/12/17 14:51 03/12/17 14:51 03/12/17 14:51 03/12/17 14:51 03/12/17 14:51 <Emre Ambrocio - Last Filed: 03/12/17 20:27> - Vital Signs Last Vital Signs Temp Pulse Resp BP Pulse Ox 98.3 F 83 18 123/79 99 03/12/17 14:51 03/12/17 16:00 03/12/17 14:51 03/12/17 14:51 03/12/17 16:00 - Physical Exam Comments: 03/13/17 00:41 GENERAL: The patient is awake, alert, and fully oriented, Nontoxic - in no acute distress. HEAD: Normocephalic, atraumatic. EYES: extraocular movements intact, sclera anicteric, conjunctiva clear. ENT: Normal voice, Moist mucous membranes. NECK: Normal range of motion, supple LUNGS: Breath sounds equal, clear to auscultation bilaterally. No wheezes, no rhonchi, no rales. HEART: Regular rate and rhythm, normal S1 and S2 without murmur, rub or gallop. ABDOMEN: Soft, nontender, normoactive bowel sounds. No guarding, no rebound. No CVA tenderness EXTREMITIES: Normal range of motion, no edema. AV graft in L arm with thrill, chronic ulcer on L lateral plantar forefoot that is stable/noninfected. NEUROLOGICAL: strength 5/5 in upper/lower extmerities, sensation intat and symmetric in upper extremities, deminished sensation in lower extremiities ( possibly chronic), abnormal finger to nose on LUE, normal heel/lopez b/l, unstead gait. no nystagmus, CN2-12 intact and symmetric PSYCH: Normal mood, normal affect. SKIN: Warm, Dry, normal turgor, <Farnaz Burnsew - Last Filed: 03/13/17 00:41> Heart Score/ECG Review - ECG Impressions Comment:: 03/12/17 18:17 Twelve-lead EKG was performed and reviewed by me. There is normal sinus rhythm with a normal rate. Rate of 83 Right bundle-branch block T wave inversions in the anterior and inferior leads No significant change when compared with prior EKG dated 11/26/2016 <Emre Ambrocio - Last Filed: 03/12/17 20:27> ED Treatment Course - LABORATORY CBC & Chemistry Diagram: 03/12/17 15:12 03/12/17 15:12 - ADDITIONAL ORDERS Additional order review: Laboratory Results 03/12/17 03/12/17 03/12/17 15:12 15:12 15:12 WBC 5.0 D RBC 4.22 Hgb 14.4 D Hct 43.0 D MCV 101.7 H MCH 34.1 H MCHC 33.6 RDW 14.2 Plt Count 148 MPV 8.1 Neutrophils % 68.7 Lymphocytes % 19.0 Monocytes % 11.4 H Eosinophils % 0.4 Basophils % 0.5 PT with INR 11.50 INR 1.02 Sodium 135 L Potassium 4.2 Chloride 99 Carbon Dioxide 27 Anion Gap 9 BUN 24 H D Creatinine 6.1 H Creat Clearance w eGFR 8.79 Random Glucose 98 D Calcium 8.8 Total Bilirubin 0.5 AST 13 L ALT 18 Alkaline Phosphatase 86 Creatine Kinase 78 Troponin I 0.67 H* D Total Protein 8.5 H Albumin 3.7 03/12/17 15:12 RBC 4.22 MCV 101.7 H MCHC 33.6 RDW 14.2 MPV 8.1 Neutrophils % 68.7 Lymphocytes % 19.0 Monocytes % 11.4 H Eosinophils % 0.4 Basophils % 0.5 - RADIOLOGY Radiology Studies Ordered: Category Date Time Status HEAD CT WITHOUT CONTRAST [CT] Stat CT Scan 03/12/17 16:57 Ordered CHEST X-RAY PORTABLE* [RAD] Stat Radiology 03/12/17 16:40 Ordered <John Ambrocioan - Last Filed: 03/12/17 20:27> - LABORATORY CBC & Chemistry Diagram: 03/12/17 15:12 03/12/17 15:12 - ADDITIONAL ORDERS Additional order review: Laboratory Results 03/12/17 03/12/17 15:12 15:12 PT with INR 11.50 INR 1.02 Sodium 135 L Potassium 4.2 Chloride 99 Carbon Dioxide 27 Anion Gap 9 BUN 24 H D Creatinine 6.1 H Creat Clearance w eGFR 8.79 Random Glucose 98 D Calcium 8.8 Total Bilirubin 0.5 AST 13 L ALT 18 Alkaline Phosphatase 86 Creatine Kinase 78 Troponin I 0.67 H* D Total Protein 8.5 H Albumin 3.7 03/12/17 15:12 RBC 4.22 MCV 101.7 H MCHC 33.6 RDW 14.2 MPV 8.1 Neutrophils % 68.7 Lymphocytes % 19.0 Monocytes % 11.4 H Eosinophils % 0.4 Basophils % 0.5 - Medications Given in the ED: ED Medications Discontinued Medications Generic Name Dose Route Start Last Admin Trade Name Freq PRN Reason Stop Dose Admin Melatonin 5 mg 03/12/17 22:33 03/12/17 23:15 Melatonin PO 03/12/17 22:34 5 mg ONCE ONE Administration <Kee Burns - Last Filed: 03/13/17 00:41> Medical Decision Making - Medical Decision Making 03/12/17 16:58 87y M hx of ESRD (Dialysis MWF, last dialysis today) anemia, HL, chronic foot ulcer (stable), presents with complaint of weakness. The pt was in his usual state of health this morning, after dialysis, he stood up and feelt unsteady, and felt like his legs couldnt support him. The pt denies any other focal cmplaints including fever/chills, chest pain, n/v, headache, visio nchanges, speech changes, neck pain, abd pain, back pain, cough, congestion. On exam the pt is well appearing in no disterss. pt was originally seen by [facility], had labs done, the trop was noted to be elevated. to .6 he does have abnormal finger to nose that is most prominent on the LUE his ekg is unchanged from prior in the setting of his ESRD and lack of anginal sypmtoms, will discuss with cards first ddx for his sypmtoms include anemia, metablic derangement, atypical acs, occult infection, ?cva will obtain CT head wlil dw PMD 03/12/17 17:[address] graec he agrees iwth our plan and without changes on ekg, nor signs suggestive of angina/ischemia, will defer anticoagulation 03/12/17 19:34 ct head negative will admit for further management 03/12/17 20:23 case was disussed with [employer] Jas agree with ED obs under tele Case discussed in detail with admitting physician including history, physical exam and ancillary studies. Admitting physician has assumed care for the patient, will follow all pending diagnostics and will complete the evaluation and treatment. <Emre Ambrocio - Last Filed: 03/12/17 20:27> *DC/Admit/Observation/Transfer - Discharge Dispostion Admit: Yes <Emre Ambrocio - Last Filed: 03/12/17 20:27> - Attestations Scribe Attestion: 03/13/17 00:41 Documentation prepared by Kee Burns, acting as biomedical equipment tech for Emre Ambrocio MD, MD/DO. <Kee Burns - Last Filed: 03/13/17 00:41> Diagnosis at time of Disposition: CKD (chronic kidney disease) stage 5, GFR less than 15 ml/min, Elevated troponin Leg weakness Qualifiers: Laterality: bilateral Qualified Code(s): R29.898 - Other symptoms and signs involving the musculoskeletal system - Discharge Dispostion Condition at time of disposition: Stable
--- NOTE | 2017-03-12 21:47 | HP ---
CHIEF COMPLAINT: generalized weakness PCP: Emy HISTORY OF PRESENT ILLNESS: This is an 87 year old male with a past medical history significant for ESRD on dialysis MWF, HTN, HLD who presented to the ED for weakness. Pt reports that after dialysis he was having difficulty walking due to weakness; he felt as if his legs would give out. He denies CP, SOB, abdominal pain. He dose report mild dry cough for the past couple of days. Denies fever. ER course was notable for: (1) troponin 0.67 (2) BUN24/6.1 (3) Recent Travel: pt denies PAST MEDICAL HISTORY: HTN, HLD, ESRD, Kaposi's sarcoma L foot, chronic left foot ulcer PAST SURGICAL HISTORY: Appendectomy Social History: Smoking: quit smoking 40y ago, 1ppd prior to that Alcohol: occasional wine Drugs: pt denies Family History: mother age 62, uterine CA father age 59, [place] daughter lung CA 2 brothers/1 sister with heart disease Allergies No Known Allergies Allergy (Verified 03/12/17 14:54) HOME MEDICATIONS: 3 Medication Instructions Recorded Aspirin Coated [Ecotrin -] 81 mg PO DAILY #0 02/14/14 Atorvastatin Ca [Lipitor] 20 mg PO HS #0 NS 02/14/14 Carvedilol 3.125 mg PO BID #0 02/14/14 Cholecalciferol (Vitamin D3) 1,000 unit PO DAILY #0 02/14/14 [Vitamin D3] Folic Acid/Vit B Complex and C 0.8 mg PO DAILY #0 02/14/14 [Dialyvite 800 Tablet] [place]-3 Fatty Acids [Fish Oil] 1,000 mg PO TID #0 02/14/14 Sevelamer HCl [Renagel] 800 mg PO TID #0 02/14/14 Ubidecarenone [Co Q-10] 30 mg PO DAILY #0 02/14/14 Bacitracin - [Bacitracin Topical 1 applic TP DAILY #1 tube 12/01/16 Ointment -] Gentamicin 0.1% Ointment 1 applic TP BID #1 tube 01/26/17 [Garamycin 0.1% Ointment -] Gentamicin 0.1% Ointment 1 applic TP DAILY #1 tube 01/26/17 [Garamycin 0.1% Ointment -] REVIEW OF SYSTEMS CONSTITUTIONAL: Present: generalized weakness Absent: fever, chills, diaphoresis, malaise, loss of appetite, weight change HEENT: Absent: rhinorrhea, nasal congestion, throat pain, throat swelling, difficulty swallowing, mouth swelling, ear pain, eye pain, visual changes CARDIOVASCULAR: Absent: chest pain, syncope, palpitations, irregular heart rate, lightheadedness , peripheral edema RESPIRATORY: Present: cough Absent: shortness of breath, dyspnea with exertion, orthopnea, wheezing, stridor , hemoptysis GASTROINTESTINAL: Absent: abdominal pain, abdominal distension, nausea, vomiting, diarrhea, constipation, melena, hematochezia GENITOURINARY: Absent: dysuria, frequency, urgency, hesitancy, hematuria, flank pain, genital pain MUSCULOSKELETAL: Absent: myalgia, arthralgia, joint swelling, back pain, neck pain SKIN: Absent: rash, itching, pallor HEMATOLOGIC/IMMUNOLOGIC: Absent: easy bleeding, easy bruising, lymphadenopathy, frequent infections ENDOCRINE: Absent: unexplained weight gain, unexplained weight loss, heat intolerance, cold intolerance NEUROLOGIC: Absent: headache, focal weakness or paresthesias, dizziness, unsteady gait, seizure, mental status changes, bladder or bowel incontinence PSYCHIATRIC: Absent: anxiety, depression, suicidal or homicidal ideation, hallucinations. PHYSICAL EXAMINATION Vital Signs - 24 hr 3 03/12/17 03/12/17 14:51 16:00 Temperature 98.3 F Pulse Rate 86 83 Respiratory 18 Rate Blood Pressure 123/79 O2 Sat by Pulse 100 99 Oximetry (%) GENERAL: Awake, alert, and fully oriented, in no acute distress. HEAD: Normal with no signs of trauma. EYES: Pupils equal, round and reactive to light, extraocular movements intact, sclera anicteric, conjunctiva clear. No lid lag. EARS, NOSE, THROAT: Ears normal, nares patent, oropharynx clear without exudates. Moist mucous membranes. NECK: Normal range of motion, supple without lymphadenopathy, JVD, or masses. LUNGS: Breath sounds equal, clear to auscultation bilaterally. No crackles. No accessory muscle use. Scattered expiratory wheezing HEART: Regular rate and rhythm, normal S1 and S2 without murmur, rub or gallop. ABDOMEN: Soft, nontender, not distended, normoactive bowel sounds, no guarding, no rebound, no masses. No hepatomegaly or splenomegaly. MUSCULOSKELETAL: Normal range of motion at all joints. No bony deformities or tenderness. No CVA tenderness. UPPER EXTREMITIES: 2+ pulses, warm, well-perfused. No cyanosis. No clubbing. No peripheral edema. LOWER EXTREMITIES: 2+ pulses, warm, well-perfused. No calf tenderness. No peripheral edema. NEUROLOGICAL: Cranial nerves II-XII intact. Normal speech. Normal gait. PSYCHIATRIC: Cooperative. Good eye contact. Appropriate mood and affect. SKIN: Warm, dry, normal turgor, no rashes or lesions noted, normal capillary refill. Laboratory Results - last 24 hr 3 03/12/17 03/12/17 03/12/17 15:12 15:12 15:12 WBC 5.0 D RBC 4.22 Hgb 14.4 D Hct 43.0 D MCV 101.7 H MCH 34.1 H MCHC 33.6 RDW 14.2 Plt Count 148 MPV 8.1 Neutrophils % 68.7 Lymphocytes % 19.0 Monocytes % 11.4 H Eosinophils % 0.4 Basophils % 0.5 PT with INR 11.50 INR 1.02 Sodium 135 L Potassium 4.2 Chloride 99 Carbon Dioxide 27 Anion Gap 9 BUN 24 H D Creatinine 6.1 H Creat Clearance w eGFR 8.79 Random Glucose 98 D Calcium 8.8 Total Bilirubin 0.5 AST 13 L ALT 18 Alkaline Phosphatase 86 Creatine Kinase 78 Troponin I 0.67 H* D Total Protein 8.5 H Albumin 3.7 ECG NSR Rate of 83 Right bundle-branch block T wave inversions in the anterior and inferior leads No significant change when compared with prior EKG dated 11/26/[address] head Impression: No definite interval change since 02/12/[address] No acute intracranial hemorrhage, mass effects or hydrocephalus. No compelling evidence of acute transcortical infarction at this time. MRI is more sensitive in detecting acute infarctions. Generalized, age-related volume loss and moderate microvascular ischemic changes in the cerebral white matter, similar to 2014. Reported By: Alice Hernandez DO 03/12/17 1811 CXR portable Impression: Shallow inspiration with low lung volumes. No evidence of airspace consolidation, pulmonary vascular congestion or pleural effusion. Reported By: Alice Hernandez DO 03/12/17 1711 ASSESSMENT/PLAN: 87yM with PMH HTN, HLD, ESRD, Kaposi's sarcoma L foot, chronic left foot ulcer presented to the ED with generalized weakness. Elevated troponin - 0.67 today, 0.4 and 0.5 on previous admissions - no anginal equivalent symptoms present - ? due to ESRD - trend troponin/monitor on tele - cardiology consult generalized weakness - unclear etiology - ? removed too much fluid at dialysis - trend trops Wheezing - Pt denies any history of lung problems - will test for influenza given presence of cough - duoneb QID chronic ulcer left foot - reports she cuts a piece of material from a larger sheet that resembles "felt. Likely calcium alginate - cont calcium alginate - followed by Dr. Hernandez, cont outpatient f/u no sign of acute problem HTN - cont home coreg HLD - cont home lipitor/omega 3 ESRD - s/p dialysis today - cont fluid restriction 1L FEN - defer IVF - BMP in am - low sodium / renal diet as tolerated Dispo: pt admitted to observation status for further evaluation of his emergent condition. Visit type - Emergency Visit Emergency Visit: Yes ED Registration Date: 03/12/17 Care time: The patient presented to the Emergency Department on the above date and was hospitalized for further evaluation of their emergent condition. - New Patient This patient is new to me today: Yes Date on this admission: 03/13/17 - Critical Care Critical Care patient: No
[2017-03-12] MEDS ORDERED: MELATONIN 5 MG TABLETS PO ONE (22:33)
[2017-03-12] MEDS ORDERED: ALBUTEROL SO4 2.5/IPRATROPIUM 0.5 INH SOL 3 ML VIAL.NEB. NEB ONE (22:39)
[2017-03-12] MEDS: ATORVASTATIN CA 20 MG TABLET (FP) PO SCH (23:15)
[2017-03-12] MEDS: ALBUTEROL SO4 2.5/IPRATROPIUM 0.5 INH SOL 3 ML VIAL.NEB. NEB SCH (23:15)
[2017-03-12] MEDS: CARVEDILOL 3.125 MG TABLET (FP) PO SCH (23:15)
--- NOTE | 2017-03-13 08:11 | CON.CARD ---
Consult Consult Specialty:: cardio Referred by:: hospitalist (for schirripa) Reason for Consultation:: elev trop - History of Present Illness Chief Complaint: leg weakness History of Present Illness: 87 yo male sent from HD for bilat leg weakness following the session. Pt noted his legs were too weak to stand when finished HD. ER notes reviewed--no info as to low BPs during or after HD. he states he cannot recall now whether he's been experiencing LE weakness for 1- 2 days prior as well. denies cp, sob, palpitations, other new neuro deficits Pt has known remote cath with medically managed branch vessel dz per my memory ( I believe only one vessel branch). Has had no angina or ischemia since that time. Noted to have trop of 0.6 in ER. PMH: HTN HPL ESRD on HD - Past Medical History Cardio/Vascular: Yes: HTN, Hyperlipdemia Renal/: Yes: Renal Failure, BPH, Hemodialysis - Past Surgical History Past Surgical History: Yes: AV Fistula/Graft - Alcohol/Substance Use Hx Alcohol Use: No History of Substance Use: reports: None - Smoking History Smoking history: Former smoker Have you smoked in the past 12 months: No If you are a former smoker, when did you quit?: 30 yrs ago - Social History ADL: Independent History of Recent Travel: No Home Medications - Allergies Allergies/Adverse Reactions: Allergies Allergy/AdvReac Type Severity Reaction Status Date / Time No Known Allergies Allergy Verified 03/12/17 14:54 - Home Medications Home Medications: Ambulatory Orders Aspirin Coated [Ecotrin -] 81 mg PO DAILY #0 02/14/14 Atorvastatin Ca [Lipitor] 20 mg PO HS #0 NS 02/14/14 Carvedilol 3.125 mg PO BID #0 02/14/14 Cholecalciferol (Vitamin D3) [Vitamin D3] 1,000 unit PO DAILY #0 02/14/14 Folic Acid/Vit B Complex and C [Dialyvite 800 Tablet] 0.8 mg PO DAILY #0 [place]-3 Fatty Acids [Fish Oil] 1,000 mg PO TID #0 02/14/14 Sevelamer HCl [Renagel] 800 mg PO TID #0 02/14/14 Ubidecarenone [Co Q-10] 30 mg PO DAILY #0 02/14/14 Bacitracin - [Bacitracin Topical Ointment -] 1 applic TP DAILY #1 tube 12/01/16 Gentamicin 0.1% Ointment [Garamycin 0.1% Ointment -] 1 applic TP BID #1 tube Gentamicin 0.1% Ointment [Garamycin 0.1% Ointment -] 1 applic TP DAILY #1 tube 01/26/17 Family Disease History - Family Disease History Family Disease History: Heart Disease: Brother, Sister Vital Signs: Vital Signs Temperature 98.1 F 03/13/17 06:00 Pulse Rate 66 03/13/17 06:00 Respiratory Rate 20 03/13/17 06:00 Blood Pressure 172/70 03/13/17 06:00 O2 Sat by Pulse Oximetry (%) 98 03/13/17 04:38 - Other Data Labs, Other Data: INR, PTT INR 1.02 (0.82-1.09) 03/12/17 15:12 Troponin, BNP 03/12/17 03/12/17 15:12 23:26 Troponin I 0.67 H* D 0.63 H* Troponin, BNP 03/12/17 03/12/17 15:12 23:26 Troponin I 0.67 H* D 0.63 H* Assessment/Plan ECG: NSR, borderling Q waves inferior leads, RBBB with assctd repol abn, not signif changed vs 11/24 CXR: clear lungs/pleura CT head: no acute pathology Echo 2014: nl LV/EF. nl RV. nl LA. mild AI. RVSP 40-50 h/o CAD, elevated trop: -trop 0.6 x 2, flat trend not c/w ACS. no ecg changes. -has remote h/o cath with (single?) branch vessel dz managed medically, no h/o angina or ischemia since -tropinins here clearly secondary to Type II [place], i.e. supply/demand mismatch. suspect he was transiently hypotensive following dialysis, demetrio on standing up ( a common post-HD phenomenon), and hypoperfusion to coronaries occurred, with baseline stable coronary stenosis. -will plan echo and MPI to risk-stratify--if he remains without anginal sx's, the stress testing can be safely deferred to outpt setting -cont home ASA, statin, BB LE weakness: -? orthostasis sx following HD in pt with non-compliant arterial system -? sx's began prior to HD, pt poor historian--defer further w/u to pmd HTN: -h/o labile bp's in past when in hospital -currently mild-mod elevated at times -cont home meds, observe ESRD on HD: -schedule per renal
[2017-03-13 08:25] LABS: BASO % 0.3 % (0-2.0); EOS % 1.2 % (0-4.5); HEMATOCRIT 41.7 % (35.4-49); HEMOGLOBIN 13.5 GM/dL (11.7-16.9); MCH 33.4 pg (25.7-33.7); MCHC 32.5 g/dl (32.0-35.9); MEAN CELL VOLUME 102.7 fl (80-96); MEAN PLT VOLUME 7.7 fl (7.5-11.1); MONO % 14.7 % (3.8-10.2); NEUT % 56.8 % (42.8-82.8); PLATELET COUNT 117 K/MM3 (134-434); RBC 4.06 M/mm3 (4.00-5.60); WHITE BLOOD COUNT 5.3 K/mm3 (4.0-10.0)
[2017-03-13] MEDS: SEVELAMER CARBONATE 800 MG TAB (FP) PO SCH ×3 (08:41→18:02)
[2017-03-13] MEDS: OMEGA-3 ACID ETHYL ESTERS (FATTY-ACIDS) 1 GM CAPSULE (FP) PO SCH ×3 (08:42→21:59)
[2017-03-13 08:58] LABS: CHLORIDE 101 mmol/L (98-107); POTASSIUM 4.5 mmol/L (3.5-5.1); SODIUM 139 mmol/L (136-145)
[2017-03-13 09:14] LABS: ANION GAP 12 (8-16); BLOOD UREA NITROGEN 38 mg/dL (7-18); CALCIUM 8.8 mg/dL (8.5-10.1); CO2 26 mmol/L (21-32); GLUCOSE,RANDOM 90 mg/dL (74-106); MAGNESIUM 1.9 mg/dL (1.8-2.4)
[2017-03-13] MEDS ORDERED: PT OWN MED DRAWER 7, Y5N ONE ×2 (09:43→21:55)
[2017-03-13] MEDS: ASPIRIN COATED 81 MG TABLET.EC PO SCH (09:44)
[2017-03-13] MEDS: CARVEDILOL 3.125 MG TABLET (FP) PO SCH ×2 (09:45→21:59)
[2017-03-13] MEDS: VITAMIN B COMP W-C 1 EA TABLET PO SCH (09:45)
[2017-03-13] MEDS ORDERED: UBIDECARENONE 30 MG PO SCH (10:00)
--- NOTE | 2017-03-13 13:21 | EKG ---
Test Reason : Blood Pressure : / mmHG Vent. Rate : 083 BPM Atrial Rate : 083 BPM P-R Int : 160 ms QRS Dur : 130 ms QT Int : 396 ms P-R-T Axes : 021 -17 -33 degrees QTc Int : 465 ms NORMAL SINUS RHYTHM RIGHT BUNDLE BRANCH BLOCK MINIMAL VOLTAGE CRITERIA FOR LVH, MAY BE NORMAL VARIANT ABNORMAL ECG WHEN COMPARED WITH ECG OF 26-NOV-2016 14:04, NO SIGNIFICANT CHANGE WAS FOUND BASELINE ARTIFACT Confirmed by KEYONNA SENIOR, GRAHAM ([id number]) on 03/13/2017 1:20:44 PM Referred By: Confirmed By:GRAHAM NEWBY MD
--- NOTE | 2017-03-13 15:59 | PN ---
Progress Note (short form) - Note Progress Note: Subjective: The patient was seen and examined at the bedside, he has no complaints at this time. Current Medications Generic Name Dose Route Start Last Admin Trade Name Freq PRN Reason Stop Dose Admin Albuterol/Ipratropium 1 amp 03/12/17 22:30 03/12/17 23:15 Duoneb - NEB 1 amp RQID PAYAM Administration Aspirin 81 mg 03/13/17 10:00 03/13/17 09:44 Ecotrin - PO 81 mg DAILY PAYAM Administration Atorvastatin Calcium 20 mg 03/12/17 22:00 03/12/17 23:15 Lipitor - PO 20 mg HS PAYAM Administration Carvedilol 3.125 mg 03/12/17 22:00 03/13/17 09:45 Coreg - PO 3.125 mg BID PAYAM Administration Melatonin 5 mg 03/12/17 22:33 Melatonin PO HS PRN INSOMNIA Multivit/Ca Carb/B Cmplx/FA/Prenat 1 tablet 03/13/17 10:00 03/13/17 09:45 Nephro-Geni - PO 1 tablet DAILY PAYAM Administration Zklef-0-Mzvz Ethyl Esters 1 gm 03/13/17 06:00 03/13/17 13:55 Lovaza - PO 1 gm TID PAYAM Administration Sevelamer Carbonate 800 mg 03/13/17 08:00 03/13/17 12:27 Renvela - PO 800 mg TIDCM PAYAM Administration Objective: Vital Signs Period Temp Pulse Resp BP Sys/Woodson Pulse Ox Last 24 Hr 97.9 F-98.8 F 66-81 18-20 145-172/59-81 98-100 Physical Exam: General: NAD, A&Ox3 Lungs: CTA bilaterally Heart: RRR, S1S2 Abd: Soft, non-tender, non-distended. Normoactive bowel sounds Ext: Warm, well-perfused. 2+ DP/PT bilaterally CBCD WBC 5.3 K/mm3 (4.0-10.0) 03/13/17 07:30 RBC 4.06 M/mm3 (4.00-5.60) 03/13/17 07:30 Hgb 13.5 GM/dL (11.7-16.9) 03/13/17 07:30 Hct 41.7 % (35.4-49) 03/13/17 07:30 MCV 102.7 fl (80-96) H 03/13/17 07:30 MCHC 32.5 g/dl (32.0-35.9) 03/13/17 07:30 RDW 14.0 % (11.9-15.9) 03/13/17 07:30 Plt Count 117 K/MM3 (134-434) L D 03/13/17 07:30 MPV 7.7 fl (7.5-11.1) 03/13/17 07:30 CMP Sodium 139 mmol/L (136-145) 03/13/17 07:30 Potassium 4.5 mmol/L (3.5-5.1) 03/13/17 07:30 Chloride 101 mmol/L (98-107) 03/13/17 07:30 Carbon Dioxide 26 mmol/L (21-32) 03/13/17 07:30 Anion Gap 12 (8-16) 03/13/17 07:30 BUN 38 mg/dL (7-18) H D 03/13/17 07:30 Creatinine 8.0 mg/dL (0.7-1.3) H* D 03/13/17 07:30 Creat Clearance w eGFR 8.79 (>60) 03/12/17 15:12 Random Glucose 90 mg/dL (74-106) 03/13/17 07:30 Calcium 8.8 mg/dL (8.5-10.1) 03/13/17 07:30 Total Bilirubin 0.5 mg/dL (0.2-1.0) 03/12/17 15:12 AST 13 U/L (15-37) L 03/12/17 15:12 ALT 18 U/L (12-78) 03/12/17 15:12 Alkaline Phosphatase 86 U/L (45-117) 03/12/17 15:12 Total Protein 8.5 g/dl (6.4-8.2) H 03/12/17 15:12 Albumin 3.7 g/dl (3.4-5.0) 03/12/17 15:12 CARDIAC ENZYMES Creatine Kinase 74 IU/L (39-308) 03/13/17 07:30 Troponin I 0.57 ng/ml (0.00-0.05) H 03/13/17 07:30 Microbiology 03/12/17 22:50 Nasopharyngeal Swab Influenza Types A,B Antigen (LADONNA) - Final 03/12/17 22:50 Nasopharyngeal Swab - Final Assessment: This is an 87 year old male with PMHx of 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 Plan: 1) Weakness - Patient reports weakness after HD - He states he is feeling good now - Will contact PT for pre/post HD evaluation 2) CAD, Elevated troponins - Peaked at 0.67, no EKG changes per cardiology - Continue ASA - F/u ECHO - F/u stress test - Continue Lipitor - Continue Coreg 3) ESRD - Next HD session Wednesday - Continue Sevelamer - Appreciate nephrology consult 4) F/E/N: - Sodium controlled diet - Monitor electrolytes 5) Prophylaxis: - PT evaluation 6) Dispo: - Once condition improves CODE STATUS: FULL CODE Visit type - Emergency Visit Emergency Visit: Yes ED Registration Date: 03/12/17 Care time: The patient presented to the Emergency Department on the above date and was hospitalized for further evaluation of their emergent condition. - New Patient This patient is new to me today: Yes Date on this admission: 03/14/17 - Critical Care Critical Care patient: No
[2017-03-13] MEDS: ATORVASTATIN CA 20 MG TABLET (FP) PO SCH (21:59)
[2017-03-13] MEDS: MELATONIN 5 MG TABLETS PO PRN (21:59)
[2017-03-14 06:17] LABS: HEMATOCRIT 39.8 % (35.4-49); HEMOGLOBIN 13.2 GM/dL (11.7-16.9); MCH 34.2 pg (25.7-33.7); MCHC 33.3 g/dl (32.0-35.9); MEAN CELL VOLUME 102.7 fl (80-96); MEAN PLT VOLUME 8.4 fl (7.5-11.1); PLATELET COUNT 129 K/MM3 (134-434); RBC 3.88 M/mm3 (4.00-5.60); RDW 14.1 % (11.9-15.9); WHITE BLOOD COUNT 5.7 K/mm3 (4.0-10.0)
[2017-03-14] MEDS: OMEGA-3 ACID ETHYL ESTERS (FATTY-ACIDS) 1 GM CAPSULE (FP) PO SCH ×3 (07:09→21:46)
[2017-03-14 07:44] LABS: CHLORIDE 104 mmol/L (98-107); POTASSIUM 5.2 mmol/L (3.5-5.1); SODIUM 141 mmol/L (136-145)
[2017-03-14 08:00] LABS: ALBUMIN 3.1 g/dl (3.4-5.0); ALK PHOS 78 U/L (45-117); ANION GAP 12 (8-16); BILIRUBIN,TOTAL 0.3 mg/dL (0.2-1.0); BLOOD UREA NITROGEN 65 mg/dL (7-18); CALCIUM 8.5 mg/dL (8.5-10.1); CO2 25 mmol/L (21-32); GLUCOSE,RANDOM 91 mg/dL (74-106); SGOT/AST 10 U/L (15-37); SGPT/ALT 15 U/L (12-78)
[2017-03-14 08:11] VITALS: BMI 27.4
--- NOTE | 2017-03-14 08:11 | CON.NEP ---
Consult Consult Specialty:: Nephrology Referred by:: COSME Sosa Reason for Consultation:: ESRD on HD, Lower extremity weakness - History of Present Illness Chief Complaint: LE weakness History of Present Illness: This is a 87 year old gentleman with PMhx of ESRD on HD (x 9 years, MWF), Hypertension, Hyperlipidemia who presented to the ED with complaints of weakness in his legs following dialysis and found to have elevated troponin. Pt denies any CP, sob, N/V, diaphoresis. Denies any numbness or pain in LE. He feels better now but not all the way back to normal. No LE swelling. No fever, chills. CT head was negative. Planned for stress test tomorrow. - History Source History Provided By: Patient Limitations to Obtaining History: No Limitations - Past Medical History Cardio/Vascular: Yes: HTN, Hyperlipdemia Renal/: Yes: Renal Failure, BPH, Hemodialysis - Past Surgical History Past Surgical History: Yes: AV Fistula/Graft - Alcohol/Substance Use Hx Alcohol Use: No History of Substance Use: reports: None - Smoking History Smoking history: Former smoker Have you smoked in the past 12 months: No If you are a former smoker, when did you quit?: 30 yrs ago - Social History ADL: Independent History of Recent Travel: No Home Medications - Allergies Allergies/Adverse Reactions: Allergies Allergy/AdvReac Type Severity Reaction Status Date / Time No Known Allergies Allergy Verified 03/12/17 14:54 - Home Medications Home Medications: Ambulatory Orders Aspirin Coated [Ecotrin -] 81 mg PO DAILY #0 02/14/14 Atorvastatin Ca [Lipitor] 20 mg PO HS #0 NS 02/14/14 Carvedilol 3.125 mg PO BID #0 02/14/14 Cholecalciferol (Vitamin D3) [Vitamin D3] 1,000 unit PO DAILY #0 02/14/14 Folic Acid/Vit B Complex and C [Dialyvite 800 Tablet] 0.8 mg PO DAILY #0 [place]-3 Fatty Acids [Fish Oil] 1,000 mg PO TID #0 02/14/14 Sevelamer HCl [Renagel] 800 mg PO TID #0 02/14/14 Ubidecarenone [Co Q-10] 30 mg PO DAILY #0 02/14/14 Bacitracin - [Bacitracin Topical Ointment -] 1 applic TP DAILY #1 tube 12/01/16 Gentamicin 0.1% Ointment [Garamycin 0.1% Ointment -] 1 applic TP BID #1 tube Gentamicin 0.1% Ointment [Garamycin 0.1% Ointment -] 1 applic TP DAILY #1 tube 01/26/17 Family Disease History - Family Disease History Family Disease History: Heart Disease: Brother, Sister Review of Systems - Review of Systems Constitutional: reports: No Symptoms Eyes: reports: No Symptoms HENT: reports: No Symptoms Neck: reports: No Symptoms Cardiovascular: reports: No Symptoms Respiratory: reports: No Symptoms Gastrointestinal: reports: No Symptoms Genitourinary: reports: No Symptoms Integumentary: reports: No Symptoms Neurological: reports: Weakness Endocrine: reports: No Symptoms Nephrology Consult - Height Height: 5 ft 9 in - Weight Weight: 84.368 kg - BMI Body Mass Index (BMI): 27.4 - Lab Results CBC,BMP: CBC, BMP 03/14/17 05:50 Anion Gap: Anion Gap Anion Gap 12 (8-16) 03/13/17 07:30 - Imaging Chest X-ray: Report Reviewed Cat Scan: Report Reviewed - Physical Examination Vital Signs: Vital Signs Temperature 97.8 F 03/13/17 18:00 Pulse Rate 72 03/14/17 06:00 Respiratory Rate 18 03/14/17 06:00 Blood Pressure 149/69 03/14/17 06:00 O2 Sat by Pulse Oximetry (%) 100 03/13/17 20:06 Constitutional: Yes: No Distress Eyes: Yes: Conjunctiva Clear HENT: Yes: Atraumatic Neck: Yes: Supple Cardiovascular: Yes: Regular Rate and Rhythm. No: Murmur Respiratory: Yes: Regular, CTA Bilaterally Gastrointestinal: Yes: Normal Bowel Sounds, Soft Access for Hemodialysis: AV Fistula Extremities: No: Cold, Cool, Cyanosis Edema: No Wound/Incision: Yes: Well Approximated Neurological: Yes: Alert, Oriented Assessment/Plan 87 year old gentleman with PMhx of ESRD on HD (x 9 years, MWF), Hypertension, Hyperlipidemia who presented to the ED with complaints of weakness in his legs following dialysis and found to have elevated troponin. #Lower extremity weakness CT head w/o evidence of CVA symptoms improving Will place neurology consult for further evaluation #Elevated cardiac enzymes no chest pain for stress test tomorrow tele monitoring on ASA Cardiology following #ESRD on HD For dialysis tomorrow as inpatient dose all meds for intermittent HD 1.2 L Fluid restriction renal diet will continue HD 3x weekly as inpatient #Hypertension controlled on Coreg Thank you will follow Sudheer Wade DO
[2017-03-14] MEDS: SEVELAMER CARBONATE 800 MG TAB (FP) PO SCH ×3 (08:37→17:32)
[2017-03-14] MEDS: ASPIRIN COATED 81 MG TABLET.EC PO SCH (09:46)
[2017-03-14] MEDS: VITAMIN B COMP W-C 1 EA TABLET PO SCH (09:46)
[2017-03-14] MEDS: CARVEDILOL 3.125 MG TABLET (FP) PO SCH ×2 (09:46→21:46)
[2017-03-14 09:54] LABS: CREATININE 10.6 mg/dL (0.7-1.3)
--- NOTE | 2017-03-14 10:57 | PN ---
Progress Note, Physician Chief Complaint: LE weakness History of Present Illness: feels well. denies cp, sob, leg swelling, palpitations - Current Medication List Current Medications: Active Medications Albuterol/Ipratropium (Duoneb -) 1 amp NEB RQID [facility] Last Admin: 03/12/17 23:15 Dose: 1 amp Aspirin (Ecotrin -) 81 mg PO DAILY [facility] Last Admin: 03/14/17 09:46 Dose: 81 mg Atorvastatin Calcium (Lipitor -) 20 mg PO HS [facility] Last Admin: 03/13/17 21:59 Dose: 20 mg Carvedilol (Coreg -) 3.125 mg PO BID [facility] Last Admin: 03/14/17 09:46 Dose: 3.125 mg Melatonin (Melatonin) 5 mg PO HS PRN PRN Reason: INSOMNIA Last Admin: 03/13/17 21:59 Dose: 5 mg Multivit/Ca Carb/B Cmplx/FA/Prenat (Nephro-Geni -) 1 tablet PO DAILY [facility] Last Admin: 03/14/17 09:46 Dose: 1 tablet Qxvmw-3-Vehx Ethyl Esters (Lovaza -) 1 gm PO TID [facility] Last Admin: 03/14/17 07:09 Dose: 1 gm Sevelamer Carbonate (Renvela -) 800 mg PO TIDCM [facility] Last Admin: 03/14/17 08:37 Dose: 800 mg - Objective Vital Signs: Vital Signs Temperature 97.8 F 03/13/17 18:00 Pulse Rate 72 03/14/17 06:00 Respiratory Rate 18 03/14/17 06:00 Blood Pressure 149/69 03/14/17 06:00 O2 Sat by Pulse Oximetry (%) 100 03/13/17 20:06 Constitutional: Yes: Well Nourished, No Distress, Calm Cardiovascular: Yes: Regular Rate and Rhythm, S1, S2. No: Gallop, Murmur Respiratory: Yes: Regular, Accessory Muscle Use, Wheezes (faint). No: Rales Extremities: No: Cold Edema: No Neurological: Yes: Alert, Oriented Psychiatric: No: Agitated Labs: CBC, BMP 03/14/17 05:50 03/14/17 05:50 INR, PTT INR 1.02 (0.82-1.09) 03/12/17 15:12 - ....Imaging EKG: Other (tele: NSR, artifact (no VT)) Assessment/Plan ECG: NSR, borderling Q waves inferior leads, RBBB with assctd repol abn, not signif changed vs 11/24 CXR: clear lungs/pleura CT head: no acute pathology Echo 2014: nl LV/EF. nl RV. nl LA. mild AI. RVSP 40-50 h/o CAD, elevated trop: -trop 0.6 x 2-->0.5, flat trend not c/w ACS. no ecg changes. -has remote h/o cath with (single?) branch vessel dz managed medically, no h/o angina or ischemia since -tropinins here clearly secondary to Type II [place], i.e. supply/demand mismatch. suspect he was transiently hypotensive following dialysis, demetrio on standing up ( a common post-HD phenomenon), and hypoperfusion to coronaries occurred, with baseline stable coronary stenosis. -will plan echo and MPI to risk-stratify (tomorrow AM) -cont home ASA, statin, BB LE weakness: -? orthostasis sx following HD in pt with non-compliant arterial system -? sx's began prior to HD, pt poor historian -no acute infarct on CT head -defer ? need for further w/u to pmd HTN: -h/o labile bp's in past when in hospital -currently mild-mod elevated at times -cont home meds, observe ESRD on HD: -schedule per renal
[2017-03-14] MEDS ORDERED: PT OWN MED DRAWER 7, Y5N ONE (17:07)
--- NOTE | 2017-03-14 18:34 | CONSULT ---
Consult - text type - Consultation Consultation Note: NEUROLOGY CONSULTATION is greatly appreciated: Events reviewed. Patient examined with his at the bedside who aides with history. This 87 yo [facility] man wit h/o HTN, Chol, BPH and macrocytic anemia has ESRD on HD x 8 years. On Carvedilol, Atorvastatin and Renagel. He has had progressive gait unsteadiness since Nov. when he gave up driving for this reason. describes progressive shuffling. He describes numbness, tingling +/- pains in his legs that increases after HD. For the last 6 weeks (18 HD sessions) he has had weakness in his legs after HD that takes a few hours to improve. After Wednesday's HD the complaints were so severe he could not walk and came to the ER. ROS is sig for severe neck and shoulder pain (R>L) progressing over 6 mos associated with Right shoulder weakness attributed to "bursitis." CT of head (reviewed): shows moderate, diffuse atrophy and ex vacuo hydrocephalus. SYED: Decreased neck ROM. Full Passive ROM right shoulder with clicking. - SLR. Left arm AV fistula NEURO: Mild OMS CN: II-XLL: normal without nystagmus. Motor: R drift due to focal right shoulder weakness (3/5). B/L ankle dorsiflexion weakness. +Cogwheel rigidity (R>>L). Absent R AJ. Normal L AJ! Plantars silent. Coord: No FTN dystaxia Sensory: Decreased vibration both legs to the knees. Romberg ++ Gait: Unsteady, wide-based and shuffling. IMP: Progressive gait dysfunction over 4+ months. Probably mutifactorial: 1. Cervical myelopathy (Renal osteodystrophy?) is more likely than neuropathy with preservation of the left AJ. 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 Suggest: Check B12 levels, CK. MRI of Cervical spine (C-). Trial of LevoDopa. PT for gait with walker. Thank you very much, Sharad Olguin MD
--- NOTE | 2017-03-14 18:37 | PN ---
Progress Note (short form) - Note Progress Note: Subjective: The patient was seen at the bedside, he was eating dinner and did not want to be examined. He reports feeling better at this time. Current Medications Generic Name Dose Route Start Last Admin Trade Name Freq PRN Reason Stop Dose Admin Albuterol/Ipratropium 1 amp 03/12/17 22:30 03/12/17 23:15 Duoneb - NEB 1 amp RQID PAYAM Administration Aspirin 81 mg 03/13/17 10:00 03/14/17 09:46 Ecotrin - PO 81 mg DAILY PAYAM Administration Atorvastatin Calcium 20 mg 03/12/17 22:00 03/13/17 21:59 Lipitor - PO 20 mg HS PAYAM Administration Carvedilol 3.125 mg 03/12/17 22:00 03/14/17 09:46 Coreg - PO 3.125 mg BID PAYAM Administration Melatonin 5 mg 03/12/17 22:33 03/13/17 21:59 Melatonin PO 5 mg HS PRN Administration INSOMNIA Multivit/Ca Carb/B Cmplx/FA/Prenat 1 tablet 03/13/17 10:00 03/14/17 09:46 Nephro-Geni - PO 1 tablet DAILY PAYAM Administration Zlntu-9-Cfgu Ethyl Esters 1 gm 03/13/17 06:00 03/14/17 13:06 Lovaza - PO 1 gm TID PAYMA Administration Sevelamer Carbonate 800 mg 03/13/17 08:00 03/14/17 17:32 Renvela - PO 800 mg TIDCM PAYAM Administration Objective: Vital Signs Period Temp Pulse Resp BP Sys/[place] Pulse Ox Last 24 Hr 98.2 F-98.4 F 69-100 -18 128-172/62-73 100-100 Physical Exam: Patient refused CBCD WBC 5.7 K/mm3 (4.0-10.0) 03/14/17 05:50 RBC 3.88 M/mm3 (4.00-5.60) L 03/14/17 05:50 Hgb 13.2 GM/dL (11.7-16.9) 03/14/17 05:50 Hct 39.8 % (35.4-49) 03/14/17 05:50 MCV 102.7 fl (80-96) H 03/14/17 05:50 MCHC 33.3 g/dl (32.0-35.9) 03/14/17 05:50 RDW 14.1 % (11.9-15.9) 03/14/17 05:50 Plt Count 129 K/MM3 (134-434) L 03/14/17 05:50 MPV 8.4 fl (7.5-11.1) 03/14/17 05:50 CMP Sodium 141 mmol/L (136-145) 03/14/17 05:50 Potassium 5.2 mmol/L (3.5-5.1) H 03/14/17 05:50 Chloride 104 mmol/L (98-107) 03/14/17 05:50 Carbon Dioxide 25 mmol/L (21-32) 03/14/17 05:50 Anion Gap 12 (8-16) 03/14/17 05:50 BUN 65 mg/dL (7-18) H D 03/14/17 05:50 Creatinine 10.6 mg/dL (0.7-1.3) H* D 03/14/17 05:50 Creat Clearance w eGFR 4.65 (>60) 03/14/17 05:50 Random Glucose 91 mg/dL (74-106) 03/14/17 05:50 Calcium 8.5 mg/dL (8.5-10.1) 03/14/17 05:50 Total Bilirubin 0.3 mg/dL (0.2-1.0) D 03/14/17 05:50 AST 10 U/L (15-37) L D 03/14/17 05:50 ALT 15 U/L (12-78) 03/14/17 05:50 Alkaline Phosphatase 78 U/L (45-117) 03/14/17 05:50 Total Protein 7.0 g/dl (6.4-8.2) 03/14/17 05:50 Albumin 3.1 g/dl (3.4-5.0) L 03/14/17 05:50 CARDIAC ENZYMES Creatine Kinase 74 IU/L (39-308) 03/13/17 07:30 Troponin I 0.57 ng/ml (0.00-0.05) H 03/13/17 07:30 Microbiology 03/12/17 22:50 Nasopharyngeal Swab Influenza Types A,B Antigen (LADONNA) - Final 03/12/17 22:50 Nasopharyngeal Swab - Final Assessment: This is an 87 year old male with PMHx of 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 Plan: 1) Weakness - Patient reports weakness after HD - He states he is feeling good now - Will contact PT for pre/post HD evaluation - F/u MRI c spine - Trial of levodopa - Appreciate neurology consult 2) CAD, Elevated troponins - Peaked at 0.67, no EKG changes per cardiology - Continue ASA - F/u ECHO - F/u stress test - Continue Lipitor - Continue Coreg 3) ESRD - HD tomorrow - Continue Sevelamer - Appreciate nephrology consult 4) F/E/N: - Sodium controlled diet - NPO after midnight for stress test tomorrow - Monitor electrolytes 5) Prophylaxis: - Heparin 5,000u sq bid - PT evaluation 6) Dispo: - Once condition improves CODE STATUS: FULL CODE Visit type - Emergency Visit Emergency Visit: Yes ED Registration Date: 03/12/17 Care time: The patient presented to the Emergency Department on the above date and was hospitalized for further evaluation of their emergent condition. - New Patient This patient is new to me today: No - Critical Care Critical Care patient: No
[2017-03-14] MEDS: ALBUTEROL SO4 2.5/IPRATROPIUM 0.5 INH SOL 3 ML VIAL.NEB. NEB SCH (20:50)
[2017-03-14] MEDS: HEPARIN NA (PORCINE) 5,000 UNITS/ML 1ML VIAL SQ SCH (21:46)
[2017-03-14] MEDS: ATORVASTATIN CA 20 MG TABLET (FP) PO SCH (21:46)
[2017-03-15] MEDS: OMEGA-3 ACID ETHYL ESTERS (FATTY-ACIDS) 1 GM CAPSULE (FP) PO SCH ×3 (06:51→21:55)
[2017-03-15] MEDS: ALBUTEROL SO4 2.5/IPRATROPIUM 0.5 INH SOL 3 ML VIAL.NEB. NEB SCH ×4 (07:20→20:50)
[2017-03-15] MEDS: SEVELAMER CARBONATE 800 MG TAB (FP) PO SCH ×3 (07:40→17:41)
[2017-03-15] MEDS: CARVEDILOL 3.125 MG TABLET (FP) PO SCH ×2 (09:10→21:55)
[2017-03-15] MEDS: HEPARIN NA (PORCINE) 5,000 UNITS/ML 1ML VIAL SQ SCH ×2 (09:11→21:54)
[2017-03-15] MEDS: ASPIRIN COATED 81 MG TABLET.EC PO SCH (09:11)
[2017-03-15] MEDS: VITAMIN B COMP W-C 1 EA TABLET PO SCH (09:11)
[2017-03-15] MEDS ORDERED: REGADENOSON 0.4 MG/5 ML PRE-FILLED SYRINGE IVPUSH ONE ×2 (10:00→11:35)
[2017-03-15 11:14] LABS: HEMOGLOBIN 12.1 GM/dL (11.7-16.9); MCH 33.1 pg (25.7-33.7); MCHC 31.9 g/dl (32.0-35.9); MEAN CELL VOLUME 103.6 fl (80-96); MEAN PLT VOLUME 8.3 fl (7.5-11.1); PLATELET COUNT 118 K/MM3 (134-434); RBC 3.67 M/mm3 (4.00-5.60); RDW 14.3 % (11.9-15.9); WHITE BLOOD COUNT 6.4 K/mm3 (4.0-10.0)
[2017-03-15 11:27] LABS: ALBUMIN 3.1 g/dl (3.4-5.0); ANION GAP 15 (8-16); BILIRUBIN,TOTAL 0.3 mg/dL (0.2-1.0); BLOOD UREA NITROGEN 87 mg/dL (7-18); CALCIUM 8.6 mg/dL (8.5-10.1); CHLORIDE 103 mmol/L (98-107); CO2 22 mmol/L (21-32); GLUCOSE,RANDOM 92 mg/dL (74-106); PHOSPHOROUS 5.1 mg/dL (2.5-4.9); POTASSIUM 4.8 mmol/L (3.5-5.1); SGOT/AST 9 U/L (15-37); SGPT/ALT 14 U/L (12-78); SODIUM 140 mmol/L (136-145); TOT PROT 6.6 g/dl (6.4-8.2)
[2017-03-15 11:32] LABS: ALK PHOS 85 U/L (45-117)
[2017-03-15 11:40] LABS: CREATININE 12.1 mg/dL (0.7-1.3)
--- NOTE | 2017-03-15 16:22 | PN ---
Progress Note, Physician Chief Complaint: Mr Moran says he is doing well. No cp, sob, n/v. Currently not feeling weakness. - Current Medication List Current Medications: Active Medications Albuterol/Ipratropium (Duoneb -) 1 amp NEB RQID [facility] Last Admin: 03/15/17 11:49 Dose: Not Given Aspirin (Ecotrin -) 81 mg PO DAILY [facility] Last Admin: 03/15/17 09:11 Dose: Not Given Atorvastatin Calcium (Lipitor -) 20 mg PO HS [facility] Last Admin: 03/14/17 21:46 Dose: 20 mg Carvedilol (Coreg -) 3.125 mg PO BID [facility] Last Admin: 03/15/17 09:10 Dose: Not Given Heparin Sodium (Porcine) (Heparin -) 5,000 unit SQ BID [facility] Last Admin: 03/15/17 09:11 Dose: Not Given Melatonin (Melatonin) 5 mg PO HS PRN PRN Reason: INSOMNIA Last Admin: 03/13/17 21:59 Dose: 5 mg Multivit/Ca Carb/B Cmplx/FA/Prenat (Nephro-Geni -) 1 tablet PO DAILY [facility] Last Admin: 03/15/17 09:11 Dose: Not Given Lzdlm-1-[id number] Ethyl Esters (Lovaza -) 1 gm PO TID [facility] Last Admin: 03/15/17 13:42 Dose: Not Given Sevelamer Carbonate (Renvela -) 800 mg PO TIDCM [facility] Last Admin: 03/15/17 11:40 Dose: Not Given - Objective Vital Signs: Vital Signs Temperature 36.6 C 03/15/17 14:06 Pulse Rate 83 03/15/17 15:15 Respiratory Rate 18 03/15/17 15:15 Blood Pressure 135/65 03/15/17 15:15 O2 Sat by Pulse Oximetry (%) 100 03/15/17 09:00 Constitutional: Yes: Well Nourished, No Distress, Calm Cardiovascular: Yes: Regular Rate and Rhythm. No: Gallop, Murmur, Rub Respiratory: Yes: Regular, CTA Bilaterally. No: Rales, Rhonchi, Wheezes Gastrointestinal: Yes: Normal Bowel Sounds, Soft. No: Distention, Tenderness Extremities: Yes: WNL Edema: No Labs: CBC, BMP 03/15/17 05:32 03/15/17 05:32 INR, PTT INR 1.02 (0.82-1.09) 03/12/17 15:12 Problem List - Problems (1) Leg weakness Assessment/Plan: -patient states happens after HD -appreciate neurology assistance -follow up MRI read -currently getting HD -PT after HD Code(s): R29.898 - OTH SYMPTOMS AND SIGNS INVOLVING THE MUSCULOSKELETAL SYSTEM Qualifiers: Laterality: bilateral Qualified Code(s): R29.898 - Other symptoms and signs involving the musculoskeletal system (2) ESRD (end stage renal disease) on dialysis Assessment/Plan: -Dr Wade following -HD today Code(s): N18.6 - END STAGE RENAL DISEASE; Z99.2 - DEPENDENCE ON RENAL DIALYSIS (3) Elevated troponin Assessment/Plan: -case d/w cardiology -stress test and ECHO performed -no further evaluation needed -continue medical management Code(s): R74.8 - ABNORMAL LEVELS OF OTHER SERUM ENZYMES (4) HLD (hyperlipidemia) Assessment/Plan: -continue lipitor and lovaza Code(s): E78.5 - HYPERLIPIDEMIA, UNSPECIFIED (5) Hypertension Assessment/Plan: -controlled -continue coreg Code(s): I10 - ESSENTIAL (PRIMARY) HYPERTENSION Assessment/Plan Dispo -cleared by cardiology for discharge -however currently receiving HD and needs PT to evaluate weakness after HD -also awaiting MRI read -discharge planning once all complete
--- NOTE | 2017-03-15 16:54 | PN ---
Progress Note (short form) - Note Progress Note: Chief Complaint: LE weakness History of Present Illness: getting HD. LE weakness may be improving. had stress test today, no sx's. had echo today. denies cp, sob, leg swelling, palpitations Current Medications Albuterol/Ipratropium (Duoneb -) 1 amp NEB RQID [facility] Last Admin: 03/15/17 11:49 Dose: Not Given Aspirin (Ecotrin -) 81 mg PO DAILY [facility] Last Admin: 03/15/17 09:11 Dose: Not Given Atorvastatin Calcium (Lipitor -) 20 mg PO HS [facility] Last Admin: 03/14/17 21:46 Dose: 20 mg Carvedilol (Coreg -) 3.125 mg PO BID [facility] Last Admin: 03/15/17 09:10 Dose: Not Given Heparin Sodium (Porcine) (Heparin -) 5,000 unit SQ BID [facility] Last Admin: 03/15/17 09:11 Dose: Not Given Melatonin (Melatonin) 5 mg PO HS PRN PRN Reason: INSOMNIA Last Admin: 03/13/17 21:59 Dose: 5 mg Multivit/Ca Carb/B Cmplx/FA/Prenat (Nephro-Geni -) 1 tablet PO DAILY [facility] Last Admin: 03/15/17 09:11 Dose: Not Given Bwcss-3-Jmqu Ethyl Esters (Lovaza -) 1 gm PO TID [facility] Last Admin: 03/15/17 13:42 Dose: Not Given Sevelamer Carbonate (Renvela -) 800 mg PO TIDCM [facility] Last Admin: 03/15/17 11:40 Dose: Not Given - Objective Vital Signs: Vital Signs - 24 hr 03/14/17 03/14/17 03/14/17 17:28 21:00 23:00 Temperature 97.6 F Pulse Rate 77 80 Respiratory 18 18 26 H Rate Blood Pressure 128/63 149/71 O2 Sat by Pulse 100 Oximetry (%) 03/15/17 03/15/17 03/15/17 02:19 06:00 08:15 Temperature 97 F L 97.8 F Pulse Rate 88 88 73 Respiratory 26 H 24 23 Rate Blood Pressure 178/69 166/82 162/62 O2 Sat by Pulse Oximetry (%) 03/15/17 03/15/17 03/15/17 09:00 13:40 13:45 Temperature 97.7 F Pulse Rate 77 81 Respiratory 23 18 18 Rate Blood Pressure 181/76 179/71 O2 Sat by Pulse 100 Oximetry (%) 03/15/17 03/15/17 03/15/17 14:06 14:15 14:45 Temperature 98 F Pulse Rate 74 78 84 Respiratory 22 18 18 Rate Blood Pressure 179/71 150/62 126/74 O2 Sat by Pulse Oximetry (%) 03/15/17 03/15/17 03/15/17 15:15 15:45 16:15 Temperature Pulse Rate 83 81 85 Respiratory 18 18 18 Rate Blood Pressure 135/65 131/63 134/64 O2 Sat by Pulse Oximetry (%) Intake & Output 03/13/17 03/14/17 03/15/17 03/16/17 07:59 07:59 07:59 07:59 Intake Total 200 300 Balance 200 300 Weight 180 lb 5.41 oz 186 lb 186 lb Constitutional: Yes: Well Nourished, No Distress, Calm Cardiovascular: Yes: Regular Rate and Rhythm, S1, S2. No: Gallop, Murmur Respiratory: Yes: Regular, Accessory Muscle Use, Wheezes (faint). No: Rales Extremities: No: Cold Edema: No Neurological: Yes: Alert, Oriented Psychiatric: No: Agitated Labs: CBC, BMP 03/15/17 05:32 03/15/17 05:32 Laboratory Tests 03/15/17 05:32 Total Bilirubin 0.3 AST 9 L ALT 14 Alkaline Phosphatase 85 Albumin 3.1 L - ....Imaging EKG: Other (tele: NSR (wide complex/rbbb), occ pvc's ) Assessment/Plan ECG: NSR, borderling Q waves inferior leads, RBBB with assctd repol abn, not signif changed vs 11/24 CXR: clear lungs/pleura CT head: no acute pathology Echo 03/2017: nl lv/rv size/fn. impaired relaxation. 1+ as (MG 15), 1+ mac, 1+ mr. mild phtn Echo 2014: nl LV/EF. nl RV. nl LA. mild AI. RVSP 40-50 lexiscan stress 03/2017: baseline rbbb. asx. inferior defect compatible with diaphragmatic attenuation. Nl EF. See discussion below regarding reported TID. 87 yo with medically managed cad, h/o htn, hl, esrd on hd who p/w LE weakness post HD and noted to have mild trop elevation. h/o CAD, elevated trop: -trop 0.6 x 2-->0.5, flat trend not c/w ACS. no ecg changes. -has remote h/o cath with (single?) branch vessel dz managed medically, no h/o angina or ischemia since -troponins here clearly secondary to Type II IN, i.e. supply/demand mismatch. suspect he was transiently hypotensive following dialysis, demetrio on standing up ( a common post-HD phenomenon), and hypoperfusion to coronaries occurred, with baseline stable coronary stenosis. -03/15: echo without significant abnormality (see above). No ischemia/infarct and nl EF on stress testing. Increased calculated TID noted in body of report --> discussed this finding and reviewed images with reading optical element coater. No TID on visual assessment --> not thought to be an accurate calculation. -cont home ASA, statin, BB LE weakness: -? orthostasis sx following HD in pt with non-compliant arterial system -? sx's began prior to HD, pt poor historian -no acute infarct on CT head -defer ? need for further w/u to pmd HTN: -h/o labile bp's in past when in hospital -currently mild-mod elevated at times -cont home meds, observe ESRD on HD: -schedule per renal
[2017-03-15 18:31] LABS: CREATININE 3.2 mg/dL (0.7-1.3)
[2017-03-15] MEDS: ATORVASTATIN CA 20 MG TABLET (FP) PO SCH (21:55)
[2017-03-15] MEDS: MELATONIN 5 MG TABLETS PO PRN (23:51)
[2017-03-16] MEDS: OMEGA-3 ACID ETHYL ESTERS (FATTY-ACIDS) 1 GM CAPSULE (FP) PO SCH (05:20)
[2017-03-16] MEDS: ALBUTEROL SO4 2.5/IPRATROPIUM 0.5 INH SOL 3 ML VIAL.NEB. NEB SCH (08:35)
[2017-03-16] MEDS: SEVELAMER CARBONATE 800 MG TAB (FP) PO SCH ×2 (10:20→12:34)
[2017-03-16] MEDS: CARVEDILOL 3.125 MG TABLET (FP) PO SCH (10:21)
[2017-03-16] MEDS: ASPIRIN COATED 81 MG TABLET.EC PO SCH (10:21)
[2017-03-16] MEDS: HEPARIN NA (PORCINE) 5,000 UNITS/ML 1ML VIAL SQ SCH (10:21)
[2017-03-16] MEDS: VITAMIN B COMP W-C 1 EA TABLET PO SCH (10:22)
--- NOTE | 2017-03-16 11:29 | DS ---
Physical Examination Vital Signs: Vital Signs Temperature 36.6 C 03/16/17 06:15 Pulse Rate 91 H 03/16/17 06:15 Respiratory Rate 20 03/16/17 06:15 Blood Pressure 166/84 03/16/17 06:15 O2 Sat by Pulse Oximetry (%) 98 03/15/17 20:21 Labs: CBC, BMP 03/15/17 05:32 03/15/17 17:15 Discharge Summary Reason For Visit: WEAKNESS OF LOWER EXTREMITY/ELEVATED TROPONIN LEVE Current Active Problems CKD (chronic kidney disease) stage 5, GFR less than 15 ml/min (Acute) Elevated troponin (Acute) Leg weakness (Acute) Condition: Stable - Instructions Diet, Activity, Other Instructions: resume previous diet and activity Referrals: Kristopher Dunlap MD [Primary Care Provider] - Disposition: HOME - Home Medications Comprehensive Discharge Medication List: Ambulatory Orders Aspirin Coated [Ecotrin -] 81 mg PO DAILY #0 02/14/14 Atorvastatin Ca [Lipitor] 20 mg PO HS #0 NS 02/14/14 Carvedilol 3.125 mg PO BID #0 02/14/14 Cholecalciferol (Vitamin D3) [Vitamin D3] 1,000 unit PO DAILY #0 02/14/14 Folic Acid/Vit B Complex and C [Dialyvite 800 Tablet] 0.8 mg PO DAILY #0 Capac-3 Fatty Acids [Fish Oil] 1,000 mg PO TID #0 02/14/14 Sevelamer HCl [Renagel] 800 mg PO TID #0 02/14/14 Ubidecarenone [Co Q-10] 30 mg PO DAILY #0 02/14/14 Bacitracin - [Bacitracin Topical Ointment -] 1 applic TP DAILY #1 tube 12/01/16
[2017-03-16 13:05] VITALS: BP 149/79; PULSE 95; TEMP 98.1
[2017-03-16 14:26] LABS: HBSAG SCREEN Negative (Negative); HEP A AB, IGM Negative (Negative); HEP B CORE AB, TOT Negative (Negative)
--- NOTE | 2017-03-16 14:48 | PN ---
Progress Note (short form) - Note Progress Note: Podiatry Brief Note: 87 year old M well known to me from wound healing center, L foot pressure ulcer. Being seen weekly in wound healing center. Admitted for weakness. L foot pressure ulcer stage 3 stable with granular base, hyperkeratotic borders, no probing, no purulent drainage, no cellulitis, no signs of infection. Will f/ u with me in wound healing center. Valentine Hernandez DPM
== END 2017-03-16 13:29 | disposition home or self-care (01) ==
LOC: JER 14:43 → JERBED 20:29 → J2W 03-13 04:59 → J4W 03-16 06:19
PROVIDERS: ADMIT Internal Medicine; ATTEND Internal Medicine
PROC: 3E013GC Introduction of Other Therapeutic Substance into Subcutaneous Tissue, Percutaneous Approach (ICD-10-PCS; principal; 2017-03-12)
DX: M62.81 Muscle weakness (generalized) (principal); R29.898 Other symptoms and signs involving the musculoskeletal system; R77.8 Other specified abnormalities of plasma proteins; I12.0 Hypertensive chronic kidney disease with stage 5 chronic kidney disease or end stage renal disease; N18.6 End stage renal disease; Z99.2 Dependence on renal dialysis; Z87.891 Personal history of nicotine dependence; E78.5 Hyperlipidemia, unspecified; D64.9 Anemia, unspecified; Z79.82 Long term (current) use of aspirin; L97.409 Non-pressure chronic ulcer of unspecified heel and midfoot with unspecified severity; I25.10 Atherosclerotic heart disease of native coronary artery without angina pectoris
CPT/HCPCS: 36415; 70450-TC; 71045-TC; 72141-TC; 78452-TC; 80048; 80053; 82550; 82565; 82607; 83735; 84100; 84484; 84520; 85025; 85027; 85610; 86704; 86706; 86708; 86803; 87340; 87804; 93005; 93010; 93017; 93306-TC; 94640; 97116-GP; 97161-GP; 99285-25; A9502; G0378; J1644; J2785